=== PATIENT | male | born 1970 | race Caucasian/White ===

== ENCOUNTER 2020-03-09 14:50 | Emergency (ER) | payer OTHER, SELFPAY ==
[2020-03-09] VITALS (7 sets, daily range): BP systolic 97–147; BP diastolic 46–81; PULSE 97–122; RESP 25–44; TEMP 37–38.9; O2SAT 96–100; BMI 35.8
--- NOTE | 2020-03-09 14:53 | ECG_ITS ---
Test Reason : ED Blood Pressure : / mmHG Vent. Rate : 122 BPM Atrial Rate : 122 BPM P-R Int : 146 ms QRS Dur : 092 ms QT Int : 306 ms P-R-T Axes : 000 000 052 degrees QTc Int : 436 ms Sinus tachycardia Moderate voltage criteria for LVH, may be normal variant Borderline ECG When compared with ECG of 19-AUG-2019 18:45, No significant change was found Referred By: Denise Montalvo Electronically Signed By:CHANCE NOVOA MD
--- NOTE | 2020-03-09 14:55 | ED.WEAKNESS ---
HPI - Weakness General Chief complaint: Weakness <MONICA Bowen Last Filed: 03/09/20 21:02> Stated complaint: GENERAL WEAKNESS <MONICA Bowen Last Filed: 03/09/20 21:02> Time Seen by Provider: 03/09/20 14:53 <MONICA Bowen Last Filed: 03/09/20 21:02> Source: patient and EMS <MONICA Bowen Last Filed: 03/09/20 21:02> Mode of arrival: EMS <MONICA Bowen Last Filed: 03/09/20 21:02> Limitations: no limitations <MONICA Bowen Last Filed: 03/09/20 21:02> History of Present Illness HPI Narrative: 49 y/o male with history of DM, CKD, HTN, toe osteomyelitis s/p 6 weeks of IV abx in September 2019 and eventual distal amputation who presents to the ER via EMS with generalized weakness since he received the COVID-19 vaccine 9 days ago. He states immediately after the vaccination he was weak with chills and generally feeling unwell. About 3 days ago he noticed LLE swelling and it started to become painful and difficult to ambulate. He has spent much of the last 3 days in his recliner. He called 911 today because his leg pain and swelling was worsening and was continuing to feel very weak. No chest pain, shortness of breath, N/V/D or abdominal pain. No known fevers at home. <MONICA Bowen Last Filed: 03/09/20 21:02> MD Complaint: generalized weakness and difficulty walking <MONICA Bowen Last Filed: 03/09/20 21:02> Onset (ago): day(s) (9) <MONICA oBwen Last Filed: 03/09/20 21:02> Duration: constant <MONICA Bowen Last Filed: 03/09/20 21:02> Location: generalized <MONICA Bowen Last Filed: 03/09/20 21:02> Migration: none <MONICA Bowen Last Filed: 03/09/20 21:02> Severity: severe <MONICA Bowen Last Filed: 03/09/20 21:02> Severity scale (1-10): 7 <MONICA Bowen Last Filed: 03/09/20 21:02> Quality: aching <MONICA Bowen Last Filed: 03/09/20 21:02> Relieving factors: rest <MONICA Bowen Last Filed: 03/09/20 21:02> Exacerbating factors: movement and exertion <MONICA Bowen Last Filed: 03/09/20 21:02> Associated symptoms: fever/chills and loss of appetite <MONICA Bowen Last Filed: 03/09/20 21:02> Related Data Home medications: Home Medications Medication Instructions Recorded Confirmed amlodipine 1 tab PO DAILY 03/09/20 03/09/20 atorvastatin 1 tab PO BEDTIME 03/09/20 03/09/20 losartan 1 tab PO DAILY 03/09/20 03/09/20 metformin 2 tab PO BID 03/09/20 03/09/20 sitagliptin [Januvia] 1 tab PO DAILY 03/09/20 03/09/20 <MONICA Bowen Last Filed: 03/09/20 21:02> Allergies/Adverse reactions: Allergies Allergy/AdvReac Type Severity Reaction Status Date / Time No Known Allergies Allergy Verified 03/09/20 16:15 [No Known Allergies*] <MONICA Bowen Last Filed: 03/09/20 21:02> Review of Systems Review of Systems: Constitutional: No Fever, + Chills ENT/Mouth: No sore throat, No Rhinorrhea, No Swallowing Difficulty Eyes: No Eye Pain, No Swelling, No Redness Cardiovascular: No Chest Pain, No SOB, + Orthopnea, + Edema Respiratory: No Cough, No Sputum, No Wheezing, No dyspnea Gastrointestinal: No Nausea, No Vomiting, No Diarrhea, No abdominal Pain, No Hematochezia, No Melena Genitourinary: No Dysuria, No Urinary Frequency, No Hematuria Musculoskeletal: + joint pain, + Myalgias Skin: No Skin Lesions, No rash Neuro: + Weakness, + Numbness (bottom of left foot), No Dizziness, No Headache Psych: No Anxiety/Panic, No Depression Heme/Lymph: No Bruising, No Lymphadenopathy Endocrine: No Polyuria, No Polydipsia <MONICA Bowen - Last Filed: 03/09/20 21:02> [facility] Past Medical History Medical History: Medical History (Updated 03/09/20 @ 22:14 by Fran Finnegan MD) Amputation toe Diabetes Dyslipidemia HTN (hypertension) <MONICA Bowen - Last Filed: 03/09/20 21:02> Social History Social History: Social History Alcohol intake: former Smoking Status: Former smoker Use of substances other than those prescribed or required for medical reasons: No Advance Directives: No Advance Directives Information Provided: Yes <MONICA Bowen - Last Filed: 03/09/20 21:02> Physical Exam Vital Signs: Vital Signs: Last Vital Signs Temp 99.7 F 03/09/20 20:07 Pulse 99 03/10/20 00:09 Resp 38 H 03/09/20 21:54 BP 115/79 03/10/20 00:09 Pulse Ox 100 03/10/20 00:09 Body Mass Index 35.8 Appearance: Alert. Oriented X3. Respiratory distress with increased RR Eyes: Pupils equal, round and reactive to light. ENT: Pharynx normal. Neck: Normal inspection. Neck supple. CVS: rapid rate, regular rhythm, no murmur appreciated. Pulses normal. Respiratory: Mild/moderate respiratory distress with increased RR, shallow breathing pattern. No accessory muscle use. Breath sounds normal. Abdomen: Softly distended and nontender. +BS x4 Skin: Skin warm and dry, warm to the touch on LLE. Normal skin color. Normal skin turgor. No rashes. Extremities: 4+ LE pitting edema on the left below the knee to foot with fluid filled bullae on medial foot, plantar aspect of left foot with 2cm wound with small area of central necrosis. + left calf tenderness. left lower leg is warm and erythematous Neuro: Oriented X 3. Generalized weakness, non-focal. sensory defeicit to plantar aspect of left foot, chronic <MONICA Bowen - Last Filed: 03/09/20 21:02> Vital Signs: Last Vital Signs Temp 99.7 F 03/09/20 20:07 Pulse 99 03/10/20 00:09 Resp 38 H 03/09/20 21:54 BP 115/79 03/10/20 00:09 Pulse Ox 100 03/10/20 00:09 Body Mass Index 35.8 <Mary Wang MD - Last Filed: 03/10/20 01:38> Course Course Course Narrative: 49 y/o male wit history of DM2, HTN, HLD, hx left great toe osteo s/p distal amputation, obesity who presents with generalized weakness, LLE swelling and pain as well as hyperglycemia. Concern for sepsis due to cellulitis with developing osteomyelitis. Given significant swelling will need to r/o DVT as well. He is tachycardic and tacypneic on arrival, denying SOB or chest pain. Based on ideal body weight of 87 kg he would require 2.6L IVF resuscitation. Given his current RR 40 will need to be cautious with IVF while labs are pending. No known history of CHF. Vanco/ZOsyn ordered for cellulitis and concern for osteo. Will require admission. <MONICA Bowen - Last Filed: 03/09/20 21:02> Of note, patient had already been admitted, our hospitalist Dr. Kaur noticed that the patient's foot was getting more swollen. A CT scan was ordered, which showed several concerning findings including multilocular abscess is, septic arthritis, gas foci, ulcerations. Dr. Rey and I called together Dr. Miller, who recommended to transfer the patient to [facility]. Dr. Rey talked to the internal medicine service in [facility], patient will be directly admitted to the floor in [facility] since he is already admitted to our hospital. The internal medicine team at [facility] will consult surgery (inpatient to inpatient transfer). CT of the foot: LOWER LEG: Tricompartmental osteoarthritis in the left knee is most pronounced in the medial and patellofemoral compartments with non-uniform joint space narrowing, marginal osteophytes, central osteophytes, articular surface irregularity. More mild osteoarthritis in the lateral compartment. No knee joint effusion. The ankle as detailed below. No evidence of acute osteomyelitis in the tibia and fibula. Bone mineralization appears normal. There is moderate generalized fatty atrophy of the calf musculature. There is an elongated, poorly marginated collection extending cephalad from the ankle along the deep margin of the soleus, medial margin of the flexor hallucis longus, just at superficial margin of the tibial nerve, measuring approximately 25 cm in length and 3.8 x 2.5 cm in greatest cross-section. This collection is complex with an intermediate density of 15 Hounsfield units. A few punctate foci of gas are present along the deep margin of this collection distally near the ankle. Significant subcutaneous edema is present in the soft tissues of the calf. Proximally, this edema is most pronounced anteriorly. The edema is more circumferential at the level of the ankle. ANKLE/FOOT: In the medial soft tissues of the level of the ankle and hindfoot, there is a multilocular, complex collection measuring approximately 7 x 2.4 x 4.8 cm (AP by transverse by craniocaudal), containing numerous punctate foci of gas. There is a blister in the overlying skin as well as marked surrounding soft tissue swelling and subcutaneous edema. The deep margin of this collection abuts the medial aspect of the distal tibia and medial malleolus as well as the medial flexors. Small foci of gas are noted in the region of the tendon sheaths of the flexor digitorum longus and the flexor hallucis longus. Additionally, there is a small focus of heterotopic bone formation in the fascial plane between the flexor hallucis longus and flexor digitorum longus tendons at the level of the posterior malleolus. There is [id number] osteoarthritis of the talocrural joints with marginal osteophytes and subchondral cystic change. A thin layer of cortical bone at the posterior margin of the posterior malleolus likely corresponds to an old syndesmotic injury. There is more mild osteoarthritis in the subtalar joint of the posterior facet. Gas is noted within both the talocrural and subtalar joints, mostly within the posterior recess and within the posterior facet of the subtalar joint. Additional foci of gas noted within the sinus tarsi. There is extensive osseous destruction, disorganization, and debris at the midfoot. The talar head is markedly remodeled. The navicular is not identified, likely fragmented and displaced. The cuneiforms are eroded along the proximal articular surfaces with dorsal subluxation, articulating with the dorsal aspect of the talar head. The cuboid is markedly fragmented with significant bone loss at its proximal margin and a chronic intra-articular fracture line extending to its tarsometatarsal articulations. A prominent 2.8 cm osseous fragment just distal and plantar to the anterior process of the calcaneus likely represents a residual, displaced fragment of the cuboid. Numerous smaller ossific fragments are present around the midfoot. A punctate focus of gas is also noted within the soft tissues at the dorsal aspect of the talar head at its articulation with the remaining cuneiform bones. Fluid throughout the degenerated, disorganized midfoot articulations is contiguous with a multilocular collection at the plantar aspect of the midfoot which measures roughly 9 x 7 x 3 cm in area, extending through the plantar foot muscles and surrounding many of the plantar tendons. This collection extends to the superficial skin surface along the plantar aspect of the foot where there is a 1.2 x 1 cm ulceration. This collection has a thick wall and is most consistent with an abscess. The collections in the midfoot are likely contiguous with the joint of the hindfoot and, therefore, collections in the medial soft tissues at the ankle. Sensitivity for osteomyelitis is somewhat limited by CT, though there is relatively focal osteolysis at the plantar/lateral margin of the calcaneus which may correspond to a region of acute osteomyelitis. The metatarsals are intact, though significant degenerative changes at the tarsometatarsal articulations. The distal phalanx of the great toe is absent. CT/CT foot LT wo con IMPRESSION: 1. A small ulceration in the plantar aspect of the foot is contiguous with a multilocular abscess. This is contiguous with the neuropathic arthropathy and superimposed septic arthritis in the midfoot. 2. Probable osteomyelitis at the plantar/lateral margin of the anterior process of the calcaneus. 3. Septic arthritis in the talocrural and subtalar joints, contiguous with a multilocular abscess in the medial subcutaneous soft tissues at the ankle. 4. An elongated, complex collection propagates cephalad within the deep posterior compartment of the calf adjacent to the tibial nerve and flexor hallucis longus, measuring approximately 25 cm in length. <Mary Wang MD - Last Filed: 03/10/20 01:38> Reevaluation(s) Reevaluation #1: Patient has multiple critical labs - sodium low 118 with BUN/Cr 61/2.62, anion gap of 28, bicarb 16, troponin 126 and BNP 354. He continues to be tachypenic and tachycardic and denies SOB or chest pain. Troponin elevation likely due to demand. No ischemic changes on EKG and no chest pain, will trend. LE doppler is negative for DVT however calf veins are not well seen. Concern for possible PE - STAT NM V/Q scan ordered. His corrected sodium is 123 for glucose of 400. He is AAOx3 without confusion. Etiology likely dehydration given DEMETRIS and low chloride as well. Will give gentle hydration and recheck BNP. Nephrology paged. <MONICA Bowen - Last Filed: 03/09/20 21:02> Reevaluation #2: Spoke with Dr. To who is recommending 1L NS now and then second liter of NS @ 100cc /hr. Cannot give sepsis bolus at rapid rate given the risk of rapid correction of sodium and osmotic demyleation syndrome. Will plan to repeat BNP after 1L IVF completed. <MONICA Bowen - Last Filed: 03/09/20 21:02> Reevaluation #3: NM V/Q scan is normal. Troponin trended downward and lactic acid normalized. Sodium remained 118 with slight improvement in renal function. Corrected sodium remains 123 with persistent hyperglycemia. Will give SQ insulin, 2nd Liter NS and reassess BNP. Spoke with Dr. Murphy who will admit the patient. <MONICA Bowen - Last Filed: 03/09/20 21:02> MDM - Weakness Medical Records Attestation: I reviewed the patient's medical records. <MONICA Bowen - Last Filed: 03/09/20 21:02> Lab Data Attestation: I reviewed the patient's lab results. <MONICA Bowen - Last Filed: 03/09/20 21:02> Result diagrams: : 03/09/20 15:44 03/09/20 23:51 <MONICA Bowen - Last Filed: 03/09/20 21:02> Labs: Lab Results 03/09/20 03/09/20 03/09/20 Range/Units 15:10 15:44 15:44 WBC 11.3 H (4.8-10.8) X10*3/uL RBC 3.80 L (4.60-5.80) X10*6/uL Hgb 11.1 L (14.0-18.0) g/dl Hct 32.2 L (42-52) % MCV 84.7 (80-98) fL MCH 29.2 (27.0-33.0) pg MCHC 34.5 (31.0-36.0) g/dl RDW 13.2 (11.0-16.0) % Plt Count 233 (160-400) X10*3/uL MPV 11.7 (9.4-12.4) fL Immature Gran % (Auto) Cancelled Neut % (Auto) Cancelled Lymph % (Auto) Cancelled [place] % (Auto) Cancelled Eos % (Auto) Cancelled Baso % (Auto) Cancelled Lymph # (Auto) Cancelled [place] # (Auto) Cancelled Eos # (Auto) Cancelled Baso # (Auto) Cancelled Abs Immat Gran (auto) Cancelled Absolute Neuts (auto) Cancelled Absolute Nucleated RBC 0.000 (0.0-0.012) X10*3/uL Nucleated RBC % (auto) 0.0 (0.0-0.2) /100WBC Neutrophils % (Manual) 70 (45-73) % Band Neutrophils % 21 H (3-5) % Lymphocytes % (Manual) 3 L (20-40) % Monocytes % (Manual) 4 (2-11) % Metamyelocytes % 2 % Abs Neuts (Manual) 10.3 H (2.2-7.9) X10*3/uL Lymphocytes # (Manual) 0.3 L (0.6-4.8) X10*3/uL Monocytes # (Manual) 0.5 (0.0-1.2) X10*3/uL Metamyelocytes # 0.2 X10*3/uL Platelet Estimate NORMAL (NORMAL) Plt Morphology Comment NORMAL RBC Morphology NORMAL PT 13.9 H (10.8-13.0) SEC INR 1.2 H (0.9-1.1) APTT 28.0 (24.1-38.0) SEC VBG pH (7.32-7.43) VBG pCO2 mmHg VBG pO2 mmHg VBG HCO3 mmol/L VBG O2 Saturation % VBG Base Excess mmol/L Sodium (135-145) mmol/L Potassium (3.3-5.1) mmol/l Chloride (96-108) mmol/L Carbon Dioxide (22-29) mmol/L Anion Gap (12-20) BUN (9-16) mg/dL Creatinine (0.5-1.4) mg/dL Estim Creat Clear Calc Estimated GFR POC Glucose 351 H* (60-115) mg/dL Random Glucose (60-115) mg/dL Lactic Acid (0.5-2.0) mmol/L Lactic Acid Fup @ 2Hr (0.5-2.0) mmol/L Calcium (8.4-10.2) mg/dL Magnesium (1.6-2.6) mg/dL Total Bilirubin (0.0-1.0) mg/dL Direct Bilirubin (0.0-0.5) mg/dL AST (5-37) U/L ALT (0-40) U/L Alkaline Phosphatase (39-117) U/L Troponin I High Sens (<3.5-35.0) ng/L B-Natriuretic Peptide (<100) pg/mL Total Protein (6.5-8.0) g/dL Albumin (3.5-5.0) g/dL Urine Color Urine Appearance Urine pH (5.0-8.0) Ur Specific [place] (1.005-1.025) Urine Protein (NEG-TRACE) MG/DL Urine Glucose (UA) (NEG) MG/DL Urine Ketones (NEG) MG/DL Urine Blood (NEG) Urine Nitrite (NEG) Ur Leukocyte Esterase (NEG) Urine RBC (0) /HPF Urine WBC (0-4) /HPF Ur Squamous Epith Cells /LPF Amorphous Sediment /LPF Urine Bacteria /LPF Urine Osmolality (373-1093) mosm/kg Ur Random Sodium mmol/L Acetone, Qual (Negative) Coronavirus (PCR) (Negative) Influenza Type A (PCR) (Negative) Influenza Type B (PCR) (Negative) RSV RNA Qual (PCR) (Negative) 03/09/20 03/09/20 03/09/20 Range/Units 15:44 15:44 15:44 WBC (4.8-10.8) X10*3/uL RBC (4.60-5.80) X10*6/uL Hgb (14.0-18.0) g/dl Hct (42-52) % MCV (80-98) fL MCH (27.0-33.0) pg MCHC (31.0-36.0) g/dl RDW (11.0-16.0) % Plt Count (160-400) X10*3/uL MPV (9.4-12.4) fL Immature Gran % (Auto) Neut % (Auto) Lymph % (Auto) [place] % (Auto) Eos % (Auto) Baso % (Auto) Lymph # (Auto) [place] # (Auto) Eos # (Auto) Baso # (Auto) Abs Immat Gran (auto) Absolute Neuts (auto) Absolute Nucleated RBC (0.0-0.012) X10*3/uL Nucleated RBC % (auto) (0.0-0.2) /100WBC Neutrophils % (Manual) (45-73) % Band Neutrophils % (3-5) % Lymphocytes % (Manual) (20-40) % Monocytes % (Manual) (2-11) % Metamyelocytes % % Abs Neuts (Manual) (2.2-7.9) X10*3/uL Lymphocytes # (Manual) (0.6-4.8) X10*3/uL Monocytes # (Manual) (0.0-1.2) X10*3/uL Metamyelocytes # X10*3/uL Platelet Estimate (NORMAL) Plt Morphology Comment RBC Morphology PT (10.8-13.0) SEC INR (0.9-1.1) APTT (24.1-38.0) SEC VBG pH (7.32-7.43) VBG pCO2 mmHg VBG pO2 mmHg VBG HCO3 mmol/L VBG O2 Saturation % VBG Base Excess mmol/L Sodium 118 L* (135-145) mmol/L Potassium 4.4 (3.3-5.1) mmol/l Chloride 78 L (96-108) mmol/L Carbon Dioxide 16 L (22-29) mmol/L Anion Gap 28 H (12-20) BUN 61 H (9-16) mg/dL Creatinine 2.62 H (0.5-1.4) mg/dL Estim Creat Clear Calc 52.9 Estimated GFR 26 POC Glucose (60-115) mg/dL Random Glucose 406 H* (60-115) mg/dL Lactic Acid 2.1 H* (0.5-2.0) mmol/L Lactic Acid Fup @ 2Hr (0.5-2.0) mmol/L Calcium 7.1 L (8.4-10.2) mg/dL Magnesium 2.0 (1.6-2.6) mg/dL Total Bilirubin 0.7 (0.0-1.0) mg/dL Direct Bilirubin 0.7 H (0.0-0.5) mg/dL AST 32 (5-37) U/L ALT 17 (0-40) U/L Alkaline Phosphatase 65 (39-117) U/L Troponin I High Sens 126.8 H (<3.5-35.0) ng/L B-Natriuretic Peptide 354 H (<100) pg/mL Total Protein 4.9 L (6.5-8.0) g/dL Albumin 2.2 L (3.5-5.0) g/dL Urine Color Urine Appearance Urine pH (5.0-8.0) Ur Specific [place] (1.005-1.025) Urine Protein (NEG-TRACE) MG/DL Urine Glucose (UA) (NEG) MG/DL Urine Ketones (NEG) MG/DL Urine Blood (NEG) Urine Nitrite (NEG) Ur Leukocyte Esterase (NEG) Urine RBC (0) /HPF Urine WBC (0-4) /HPF Ur Squamous Epith Cells /LPF Amorphous Sediment /LPF Urine Bacteria /LPF Urine Osmolality (373-1093) mosm/kg Ur Random Sodium mmol/L Acetone, Qual (Negative) Coronavirus (PCR) (Negative) Influenza Type A (PCR) (Negative) Influenza Type B (PCR) (Negative) RSV RNA Qual (PCR) (Negative) 03/09/20 03/09/20 03/09/20 Range/Units 15:44 15:44 15:46 WBC (4.8-10.8) X10*3/uL RBC (4.60-5.80) X10*6/uL Hgb (14.0-18.0) g/dl Hct (42-52) % MCV (80-98) fL MCH (27.0-33.0) pg MCHC (31.0-36.0) g/dl RDW (11.0-16.0) % Plt Count (160-400) X10*3/uL MPV (9.4-12.4) fL Immature Gran % (Auto) Neut % (Auto) Lymph % (Auto) [place] % (Auto) Eos % (Auto) Baso % (Auto) Lymph # (Auto) [place] # (Auto) Eos # (Auto) Baso # (Auto) Abs Immat Gran (auto) Absolute Neuts (auto) Absolute Nucleated RBC (0.0-0.012) X10*3/uL Nucleated RBC % (auto) (0.0-0.2) /100WBC Neutrophils % (Manual) (45-73) % Band Neutrophils % (3-5) % Lymphocytes % (Manual) (20-40) % Monocytes % (Manual) (2-11) % Metamyelocytes % % Abs Neuts (Manual) (2.2-7.9) X10*3/uL Lymphocytes # (Manual) (0.6-4.8) X10*3/uL Monocytes # (Manual) (0.0-1.2) X10*3/uL Metamyelocytes # X10*3/uL Platelet Estimate (NORMAL) Plt Morphology Comment RBC Morphology PT (10.8-13.0) SEC INR (0.9-1.1) APTT (24.1-38.0) SEC VBG pH 7.32 (7.32-7.43) VBG pCO2 33 mmHg VBG pO2 43 mmHg VBG HCO3 17 mmol/L VBG O2 Saturation 69.0 % VBG Base Excess -7.5 mmol/L Sodium (135-145) mmol/L Potassium (3.3-5.1) mmol/l Chloride (96-108) mmol/L Carbon Dioxide (22-29) mmol/L Anion Gap (12-20) BUN (9-16) mg/dL Creatinine (0.5-1.4) mg/dL Estim Creat Clear Calc Estimated GFR POC Glucose (60-115) mg/dL Random Glucose (60-115) mg/dL Lactic Acid (0.5-2.0) mmol/L Lactic Acid Fup @ 2Hr (0.5-2.0) mmol/L Calcium (8.4-10.2) mg/dL Magnesium (1.6-2.6) mg/dL Total Bilirubin (0.0-1.0) mg/dL Direct Bilirubin (0.0-0.5) mg/dL AST (5-37) U/L ALT (0-40) U/L Alkaline Phosphatase (39-117) U/L Troponin I High Sens (<3.5-35.0) ng/L B-Natriuretic Peptide (<100) pg/mL Total Protein (6.5-8.0) g/dL Albumin (3.5-5.0) g/dL Urine Color Urine Appearance Urine pH (5.0-8.0) Ur Specific [place] (1.005-1.025) Urine Protein (NEG-TRACE) MG/DL Urine Glucose (UA) (NEG) MG/DL Urine Ketones (NEG) MG/DL Urine Blood (NEG) Urine Nitrite (NEG) Ur Leukocyte Esterase (NEG) Urine RBC (0) /HPF Urine WBC (0-4) /HPF Ur Squamous Epith Cells /LPF Amorphous Sediment /LPF Urine Bacteria /LPF Urine Osmolality (373-1093) mosm/kg Ur Random Sodium mmol/L Acetone, Qual Small H (Negative) Coronavirus (PCR) NEGATIVE (Negative) Influenza Type A (PCR) NEGATIVE (Negative) Influenza Type B (PCR) NEGATIVE (Negative) RSV RNA Qual (PCR) NEGATIVE (Negative) 03/09/20 03/09/20 03/09/20 Range/Units 19:26 19:26 19:26 WBC (4.8-10.8) X10*3/uL RBC (4.60-5.80) X10*6/uL Hgb (14.0-18.0) g/dl Hct (42-52) % MCV (80-98) fL MCH (27.0-33.0) pg MCHC (31.0-36.0) g/dl RDW (11.0-16.0) % Plt Count (160-400) X10*3/uL MPV (9.4-12.4) fL Immature Gran % (Auto) Neut % (Auto) Lymph % (Auto) [place] % (Auto) Eos % (Auto) Baso % (Auto) Lymph # (Auto) [place] # (Auto) Eos # (Auto) Baso # (Auto) Abs Immat Gran (auto) Absolute Neuts (auto) Absolute Nucleated RBC (0.0-0.012) X10*3/uL Nucleated RBC % (auto) (0.0-0.2) /100WBC Neutrophils % (Manual) (45-73) % Band Neutrophils % (3-5) % Lymphocytes % (Manual) (20-40) % Monocytes % (Manual) (2-11) % Metamyelocytes % % Abs Neuts (Manual) (2.2-7.9) X10*3/uL Lymphocytes # (Manual) (0.6-4.8) X10*3/uL Monocytes # (Manual) (0.0-1.2) X10*3/uL Metamyelocytes # X10*3/uL Platelet Estimate (NORMAL) Plt Morphology Comment RBC Morphology PT (10.8-13.0) SEC INR (0.9-1.1) APTT (24.1-38.0) SEC VBG pH (7.32-7.43) VBG pCO2 mmHg VBG pO2 mmHg VBG HCO3 mmol/L VBG O2 Saturation % VBG Base Excess mmol/L Sodium (135-145) mmol/L Potassium (3.3-5.1) mmol/l Chloride (96-108) mmol/L Carbon Dioxide (22-29) mmol/L Anion Gap (12-20) BUN (9-16) mg/dL Creatinine (0.5-1.4) mg/dL Estim Creat Clear Calc Estimated GFR POC Glucose (60-115) mg/dL Random Glucose (60-115) mg/dL Lactic Acid (0.5-2.0) mmol/L Lactic Acid Fup @ 2Hr (0.5-2.0) mmol/L Calcium (8.4-10.2) mg/dL Magnesium (1.6-2.6) mg/dL Total Bilirubin (0.0-1.0) mg/dL Direct Bilirubin (0.0-0.5) mg/dL AST (5-37) U/L ALT (0-40) U/L Alkaline Phosphatase (39-117) U/L Troponin I High Sens (<3.5-35.0) ng/L B-Natriuretic Peptide (<100) pg/mL Total Protein (6.5-8.0) g/dL Albumin (3.5-5.0) g/dL Urine Color YELLOW Urine Appearance CLEAR Urine pH 5.5 (5.0-8.0) Ur Specific [place] >= 1.030 H (1.005-1.025) Urine Protein 2+ H (NEG-TRACE) MG/DL Urine Glucose (UA) 500 H (NEG) MG/DL Urine Ketones 15 (NEG) MG/DL Urine Blood 3+ H (NEG) Urine Nitrite NEG (NEG) Ur Leukocyte Esterase NEG (NEG) Urine RBC 1-4 (0) /HPF Urine WBC 1-4 (0-4) /HPF Ur Squamous Epith Cells TRACE /LPF Amorphous Sediment 1+ /LPF Urine Bacteria TRACE /LPF Urine Osmolality 366 L (373-1093) mosm/kg Ur Random Sodium < 20.0 mmol/L Acetone, Qual (Negative) Coronavirus (PCR) (Negative) Influenza Type A (PCR) (Negative) Influenza Type B (PCR) (Negative) RSV RNA Qual (PCR) (Negative) 03/09/20 03/09/20 03/09/20 Range/Units 20:02 20:02 20:02 WBC (4.8-10.8) X10*3/uL RBC (4.60-5.80) X10*6/uL Hgb (14.0-18.0) g/dl Hct (42-52) % MCV (80-98) fL MCH (27.0-33.0) pg MCHC (31.0-36.0) g/dl RDW (11.0-16.0) % Plt Count (160-400) X10*3/uL MPV (9.4-12.4) fL Immature Gran % (Auto) Neut % (Auto) Lymph % (Auto) [place] % (Auto) Eos % (Auto) Baso % (Auto) Lymph # (Auto) [place] # (Auto) Eos # (Auto) Baso # (Auto) Abs Immat Gran (auto) Absolute Neuts (auto) Absolute Nucleated RBC (0.0-0.012) X10*3/uL Nucleated RBC % (auto) (0.0-0.2) /100WBC Neutrophils % (Manual) (45-73) % Band Neutrophils % (3-5) % Lymphocytes % (Manual) (20-40) % Monocytes % (Manual) (2-11) % Metamyelocytes % % Abs Neuts (Manual) (2.2-7.9) X10*3/uL Lymphocytes # (Manual) (0.6-4.8) X10*3/uL Monocytes # (Manual) (0.0-1.2) X10*3/uL Metamyelocytes # X10*3/uL Platelet Estimate (NORMAL) Plt Morphology Comment RBC Morphology PT (10.8-13.0) SEC INR (0.9-1.1) APTT (24.1-38.0) SEC VBG pH (7.32-7.43) VBG pCO2 mmHg VBG pO2 mmHg VBG HCO3 mmol/L VBG O2 Saturation % VBG Base Excess mmol/L Sodium 118 L* (135-145) mmol/L Potassium 3.9 (3.3-5.1) mmol/l Chloride 83 L (96-108) mmol/L Carbon Dioxide 15 L (22-29) mmol/L Anion Gap 24 H (12-20) BUN 63 H (9-16) mg/dL Creatinine 2.58 H (0.5-1.4) mg/dL Estim Creat Clear Calc 53.8 Estimated GFR 26 POC Glucose (60-115) mg/dL Random Glucose 413 H* (60-115) mg/dL Lactic Acid (0.5-2.0) mmol/L Lactic Acid Fup @ 2Hr 1.5 (0.5-2.0) mmol/L Calcium 6.6 L D (8.4-10.2) mg/dL Magnesium (1.6-2.6) mg/dL Total Bilirubin (0.0-1.0) mg/dL Direct Bilirubin (0.0-0.5) mg/dL AST (5-37) U/L ALT (0-40) U/L Alkaline Phosphatase (39-117) U/L Troponin I High Sens 124.3 H (<3.5-35.0) ng/L B-Natriuretic Peptide (<100) pg/mL Total Protein (6.5-8.0) g/dL Albumin (3.5-5.0) g/dL Urine Color Urine Appearance Urine pH (5.0-8.0) Ur Specific [place] (1.005-1.025) Urine Protein (NEG-TRACE) MG/DL Urine Glucose (UA) (NEG) MG/DL Urine Ketones (NEG) MG/DL Urine Blood (NEG) Urine Nitrite (NEG) Ur Leukocyte Esterase (NEG) Urine RBC (0) /HPF Urine WBC (0-4) /HPF Ur Squamous Epith Cells /LPF Amorphous Sediment /LPF Urine Bacteria /LPF Urine Osmolality (373-1093) mosm/kg Ur Random Sodium mmol/L Acetone, Qual (Negative) Coronavirus (PCR) (Negative) Influenza Type A (PCR) (Negative) Influenza Type B (PCR) (Negative) RSV RNA Qual (PCR) (Negative) <MONICA Bowen - Last Filed: 03/09/20 21:02> Lab Results 03/09/20 03/09/20 03/09/20 Range/Units 15:10 15:44 15:44 WBC 11.3 H (4.8-10.8) X10*3/uL RBC 3.80 L (4.60-5.80) X10*6/uL Hgb 11.1 L (14.0-18.0) g/dl Hct 32.2 L (42-52) % MCV 84.7 (80-98) fL MCH 29.2 (27.0-33.0) pg MCHC 34.5 (31.0-36.0) g/dl RDW 13.2 (11.0-16.0) % Plt Count 233 (160-400) X10*3/uL MPV 11.7 (9.4-12.4) fL Immature Gran % (Auto) Cancelled Neut % (Auto) Cancelled Lymph % (Auto) Cancelled [place] % (Auto) Cancelled Eos % (Auto) Cancelled Baso % (Auto) Cancelled Lymph # (Auto) Cancelled [place] # (Auto) Cancelled Eos # (Auto) Cancelled Baso # (Auto) Cancelled Abs Immat Gran (auto) Cancelled Absolute Neuts (auto) Cancelled Absolute Nucleated RBC 0.000 (0.0-0.012) X10*3/uL Nucleated RBC % (auto) 0.0 (0.0-0.2) /100WBC Neutrophils % (Manual) 70 (45-73) % Band Neutrophils % 21 H (3-5) % Lymphocytes % (Manual) 3 L (20-40) % Monocytes % (Manual) 4 (2-11) % Metamyelocytes % 2 % Abs Neuts (Manual) 10.3 H (2.2-7.9) X10*3/uL Lymphocytes # (Manual) 0.3 L (0.6-4.8) X10*3/uL Monocytes # (Manual) 0.5 (0.0-1.2) X10*3/uL Metamyelocytes # 0.2 X10*3/uL Platelet Estimate NORMAL (NORMAL) Plt Morphology Comment NORMAL RBC Morphology NORMAL PT 13.9 H (10.8-13.0) SEC INR 1.2 H (0.9-1.1) APTT 28.0 (24.1-38.0) SEC VBG pH (7.32-7.43) VBG pCO2 mmHg VBG pO2 mmHg VBG HCO3 mmol/L VBG O2 Saturation % VBG Base Excess mmol/L Sodium (135-145) mmol/L Potassium (3.3-5.1) mmol/l Chloride (96-108) mmol/L Carbon Dioxide (22-29) mmol/L Anion Gap (12-20) BUN (9-16) mg/dL Creatinine (0.5-1.4) mg/dL Estim Creat Clear Calc Estimated GFR POC Glucose 351 H* (60-115) mg/dL Random Glucose (60-115) mg/dL Lactic Acid (0.5-2.0) mmol/L Lactic Acid Fup @ 2Hr (0.5-2.0) mmol/L Calcium (8.4-10.2) mg/dL Magnesium (1.6-2.6) mg/dL Total Bilirubin (0.0-1.0) mg/dL Direct Bilirubin (0.0-0.5) mg/dL AST (5-37) U/L ALT (0-40) U/L Alkaline Phosphatase (39-117) U/L Troponin I High Sens (<3.5-35.0) ng/L B-Natriuretic Peptide (<100) pg/mL Total Protein (6.5-8.0) g/dL Albumin (3.5-5.0) g/dL Urine Color Urine Appearance Urine pH (5.0-8.0) Ur Specific [place] (1.005-1.025) Urine Protein (NEG-TRACE) MG/DL Urine Glucose (UA) (NEG) MG/DL Urine Ketones (NEG) MG/DL Urine Blood (NEG) Urine Nitrite (NEG) Ur Leukocyte Esterase (NEG) Urine RBC (0) /HPF Urine WBC (0-4) /HPF Ur Squamous Epith Cells /LPF Amorphous Sediment /LPF Urine Bacteria /LPF Urine Osmolality (373-1093) mosm/kg Ur Random Sodium mmol/L Acetone, Qual (Negative) Coronavirus (PCR) (Negative) Influenza Type A (PCR) (Negative) Influenza Type B (PCR) (Negative) RSV RNA Qual (PCR) (Negative) 03/09/20 03/09/20 03/09/20 Range/Units 15:44 15:44 15:44 WBC (4.8-10.8) X10*3/uL RBC (4.60-5.80) X10*6/uL Hgb (14.0-18.0) g/dl Hct (42-52) % MCV (80-98) fL MCH (27.0-33.0) pg MCHC (31.0-36.0) g/dl RDW (11.0-16.0) % Plt Count (160-400) X10*3/uL MPV (9.4-12.4) fL Immature Gran % (Auto) Neut % (Auto) Lymph % (Auto) [place] % (Auto) Eos % (Auto) Baso % (Auto) Lymph # (Auto) [place] # (Auto) Eos # (Auto) Baso # (Auto) Abs Immat Gran (auto) Absolute Neuts (auto) Absolute Nucleated RBC (0.0-0.012) X10*3/uL Nucleated RBC % (auto) (0.0-0.2) /100WBC Neutrophils % (Manual) (45-73) % Band Neutrophils % (3-5) % Lymphocytes % (Manual) (20-40) % Monocytes % (Manual) (2-11) % Metamyelocytes % % Abs Neuts (Manual) (2.2-7.9) X10*3/uL Lymphocytes # (Manual) (0.6-4.8) X10*3/uL Monocytes # (Manual) (0.0-1.2) X10*3/uL Metamyelocytes # X10*3/uL Platelet Estimate (NORMAL) Plt Morphology Comment RBC Morphology PT (10.8-13.0) SEC INR (0.9-1.1) APTT (24.1-38.0) SEC VBG pH (7.32-7.43) VBG pCO2 mmHg VBG pO2 mmHg VBG HCO3 mmol/L VBG O2 Saturation % VBG Base Excess mmol/L Sodium 118 L* (135-145) mmol/L Potassium 4.4 (3.3-5.1) mmol/l Chloride 78 L (96-108) mmol/L Carbon Dioxide 16 L (22-29) mmol/L Anion Gap 28 H (12-20) BUN 61 H (9-16) mg/dL Creatinine 2.62 H (0.5-1.4) mg/dL Estim Creat Clear Calc 52.9 Estimated GFR 26 POC Glucose (60-115) mg/dL Random Glucose 406 H* (60-115) mg/dL Lactic Acid 2.1 H* (0.5-2.0) mmol/L Lactic Acid Fup @ 2Hr (0.5-2.0) mmol/L Calcium 7.1 L (8.4-10.2) mg/dL Magnesium 2.0 (1.6-2.6) mg/dL Total Bilirubin 0.7 (0.0-1.0) mg/dL Direct Bilirubin 0.7 H (0.0-0.5) mg/dL AST 32 (5-37) U/L ALT 17 (0-40) U/L Alkaline Phosphatase 65 (39-117) U/L Troponin I High Sens 126.8 H (<3.5-35.0) ng/L B-Natriuretic Peptide 354 H (<100) pg/mL Total Protein 4.9 L (6.5-8.0) g/dL Albumin 2.2 L (3.5-5.0) g/dL Urine Color Urine Appearance Urine pH (5.0-8.0) Ur Specific [place] (1.005-1.025) Urine Protein (NEG-TRACE) MG/DL Urine Glucose (UA) (NEG) MG/DL Urine Ketones (NEG) MG/DL Urine Blood (NEG) Urine Nitrite (NEG) Ur Leukocyte Esterase (NEG) Urine RBC (0) /HPF Urine WBC (0-4) /HPF Ur Squamous Epith Cells /LPF Amorphous Sediment /LPF Urine Bacteria /LPF Urine Osmolality (373-1093) mosm/kg Ur Random Sodium mmol/L Acetone, Qual (Negative) Coronavirus (PCR) (Negative) Influenza Type A (PCR) (Negative) Influenza Type B (PCR) (Negative) RSV RNA Qual (PCR) (Negative) 03/09/20 03/09/20 03/09/20 Range/Units 15:44 15:44 15:46 WBC (4.8-10.8) X10*3/uL RBC (4.60-5.80) X10*6/uL Hgb (14.0-18.0) g/dl Hct (42-52) % MCV (80-98) fL MCH (27.0-33.0) pg MCHC (31.0-36.0) g/dl RDW (11.0-16.0) % Plt Count (160-400) X10*3/uL MPV (9.4-12.4) fL Immature Gran % (Auto) Neut % (Auto) Lymph % (Auto) [place] % (Auto) Eos % (Auto) Baso % (Auto) Lymph # (Auto) [place] # (Auto) Eos # (Auto) Baso # (Auto) Abs Immat Gran (auto) Absolute Neuts (auto) Absolute Nucleated RBC (0.0-0.012) X10*3/uL Nucleated RBC % (auto) (0.0-0.2) /100WBC Neutrophils % (Manual) (45-73) % Band Neutrophils % (3-5) % Lymphocytes % (Manual) (20-40) % Monocytes % (Manual) (2-11) % Metamyelocytes % % Abs Neuts (Manual) (2.2-7.9) X10*3/uL Lymphocytes # (Manual) (0.6-4.8) X10*3/uL Monocytes # (Manual) (0.0-1.2) X10*3/uL Metamyelocytes # X10*3/uL Platelet Estimate (NORMAL) Plt Morphology Comment RBC Morphology PT (10.8-13.0) SEC INR (0.9-1.1) APTT (24.1-38.0) SEC VBG pH 7.32 (7.32-7.43) VBG pCO2 33 mmHg VBG pO2 43 mmHg VBG HCO3 17 mmol/L VBG O2 Saturation 69.0 % VBG Base Excess -7.5 mmol/L Sodium (135-145) mmol/L Potassium (3.3-5.1) mmol/l Chloride (96-108) mmol/L Carbon Dioxide (22-29) mmol/L Anion Gap (12-20) BUN (9-16) mg/dL Creatinine (0.5-1.4) mg/dL Estim Creat Clear Calc Estimated GFR POC Glucose (60-115) mg/dL Random Glucose (60-115) mg/dL Lactic Acid (0.5-2.0) mmol/L Lactic Acid Fup @ 2Hr (0.5-2.0) mmol/L Calcium (8.4-10.2) mg/dL Magnesium (1.6-2.6) mg/dL Total Bilirubin (0.0-1.0) mg/dL Direct Bilirubin (0.0-0.5) mg/dL AST (5-37) U/L ALT (0-40) U/L Alkaline Phosphatase (39-117) U/L Troponin I High Sens (<3.5-35.0) ng/L B-Natriuretic Peptide (<100) pg/mL Total Protein (6.5-8.0) g/dL Albumin (3.5-5.0) g/dL Urine Color Urine Appearance Urine pH (5.0-8.0) Ur Specific [place] (1.005-1.025) Urine Protein (NEG-TRACE) MG/DL Urine Glucose (UA) (NEG) MG/DL Urine Ketones (NEG) MG/DL Urine Blood (NEG) Urine Nitrite (NEG) Ur Leukocyte Esterase (NEG) Urine RBC (0) /HPF Urine WBC (0-4) /HPF Ur Squamous Epith Cells /LPF Amorphous Sediment /LPF Urine Bacteria /LPF Urine Osmolality (373-1093) mosm/kg Ur Random Sodium mmol/L Acetone, Qual Small H (Negative) Coronavirus (PCR) NEGATIVE (Negative) Influenza Type A (PCR) NEGATIVE (Negative) Influenza Type B (PCR) NEGATIVE (Negative) RSV RNA Qual (PCR) NEGATIVE (Negative) 03/09/20 03/09/20 03/09/20 Range/Units 19:26 19:26 19:26 WBC (4.8-10.8) X10*3/uL RBC (4.60-5.80) X10*6/uL Hgb (14.0-18.0) g/dl Hct (42-52) % MCV (80-98) fL MCH (27.0-33.0) pg MCHC (31.0-36.0) g/dl RDW (11.0-16.0) % Plt Count (160-400) X10*3/uL MPV (9.4-12.4) fL Immature Gran % (Auto) Neut % (Auto) Lymph % (Auto) [place] % (Auto) Eos % (Auto) Baso % (Auto) Lymph # (Auto) [place] # (Auto) Eos # (Auto) Baso # (Auto) Abs Immat Gran (auto) Absolute Neuts (auto) Absolute Nucleated RBC (0.0-0.012) X10*3/uL Nucleated RBC % (auto) (0.0-0.2) /100WBC Neutrophils % (Manual) (45-73) % Band Neutrophils % (3-5) % Lymphocytes % (Manual) (20-40) % Monocytes % (Manual) (2-11) % Metamyelocytes % % Abs Neuts (Manual) (2.2-7.9) X10*3/uL Lymphocytes # (Manual) (0.6-4.8) X10*3/uL Monocytes # (Manual) (0.0-1.2) X10*3/uL Metamyelocytes # X10*3/uL Platelet Estimate (NORMAL) Plt Morphology Comment RBC Morphology PT (10.8-13.0) SEC INR (0.9-1.1) APTT (24.1-38.0) SEC VBG pH (7.32-7.43) VBG pCO2 mmHg VBG pO2 mmHg VBG HCO3 mmol/L VBG O2 Saturation % VBG Base Excess mmol/L Sodium (135-145) mmol/L Potassium (3.3-5.1) mmol/l Chloride (96-108) mmol/L Carbon Dioxide (22-29) mmol/L Anion Gap (12-20) BUN (9-16) mg/dL Creatinine (0.5-1.4) mg/dL Estim Creat Clear Calc Estimated GFR POC Glucose (60-115) mg/dL Random Glucose (60-115) mg/dL Lactic Acid (0.5-2.0) mmol/L Lactic Acid Fup @ 2Hr (0.5-2.0) mmol/L Calcium (8.4-10.2) mg/dL Magnesium (1.6-2.6) mg/dL Total Bilirubin (0.0-1.0) mg/dL Direct Bilirubin (0.0-0.5) mg/dL AST (5-37) U/L ALT (0-40) U/L Alkaline Phosphatase (39-117) U/L Troponin I High Sens (<3.5-35.0) ng/L B-Natriuretic Peptide (<100) pg/mL Total Protein (6.5-8.0) g/dL Albumin (3.5-5.0) g/dL Urine Color YELLOW Urine Appearance CLEAR Urine pH 5.5 (5.0-8.0) Ur Specific [place] >= 1.030 H (1.005-1.025) Urine Protein 2+ H (NEG-TRACE) MG/DL Urine Glucose (UA) 500 H (NEG) MG/DL Urine Ketones 15 (NEG) MG/DL Urine Blood 3+ H (NEG) Urine Nitrite NEG (NEG) Ur Leukocyte Esterase NEG (NEG) Urine RBC 1-4 (0) /HPF Urine WBC 1-4 (0-4) /HPF Ur Squamous Epith Cells TRACE /LPF Amorphous Sediment 1+ /LPF Urine Bacteria TRACE /LPF Urine Osmolality 366 L (373-1093) mosm/kg Ur Random Sodium < 20.0 mmol/L Acetone, Qual (Negative) Coronavirus (PCR) (Negative) Influenza Type A (PCR) (Negative) Influenza Type B (PCR) (Negative) RSV RNA Qual (PCR) (Negative) 03/09/20 03/09/20 03/09/20 Range/Units 20:02 20:02 20:02 WBC (4.8-10.8) X10*3/uL RBC (4.60-5.80) X10*6/uL Hgb (14.0-18.0) g/dl Hct (42-52) % MCV (80-98) fL MCH (27.0-33.0) pg MCHC (31.0-36.0) g/dl RDW (11.0-16.0) % Plt Count (160-400) X10*3/uL MPV (9.4-12.4) fL Immature Gran % (Auto) Neut % (Auto) Lymph % (Auto) [place] % (Auto) Eos % (Auto) Baso % (Auto) Lymph # (Auto) [place] # (Auto) Eos # (Auto) Baso # (Auto) Abs Immat Gran (auto) Absolute Neuts (auto) Absolute Nucleated RBC (0.0-0.012) X10*3/uL Nucleated RBC % (auto) (0.0-0.2) /100WBC Neutrophils % (Manual) (45-73) % Band Neutrophils % (3-5) % Lymphocytes % (Manual) (20-40) % Monocytes % (Manual) (2-11) % Metamyelocytes % % Abs Neuts (Manual) (2.2-7.9) X10*3/uL Lymphocytes # (Manual) (0.6-4.8) X10*3/uL Monocytes # (Manual) (0.0-1.2) X10*3/uL Metamyelocytes # X10*3/uL Platelet Estimate (NORMAL) Plt Morphology Comment RBC Morphology PT (10.8-13.0) SEC INR (0.9-1.1) APTT (24.1-38.0) SEC VBG pH (7.32-7.43) VBG pCO2 mmHg VBG pO2 mmHg VBG HCO3 mmol/L VBG O2 Saturation % VBG Base Excess mmol/L Sodium 118 L* (135-145) mmol/L Potassium 3.9 (3.3-5.1) mmol/l Chloride 83 L (96-108) mmol/L Carbon Dioxide 15 L (22-29) mmol/L Anion Gap 24 H (12-20) BUN 63 H (9-16) mg/dL Creatinine 2.58 H (0.5-1.4) mg/dL Estim Creat Clear Calc 53.8 Estimated GFR 26 POC Glucose (60-115) mg/dL Random Glucose 413 H* (60-115) mg/dL Lactic Acid (0.5-2.0) mmol/L Lactic Acid Fup @ 2Hr 1.5 (0.5-2.0) mmol/L Calcium 6.6 L D (8.4-10.2) mg/dL Magnesium (1.6-2.6) mg/dL Total Bilirubin (0.0-1.0) mg/dL Direct Bilirubin (0.0-0.5) mg/dL AST (5-37) U/L ALT (0-40) U/L Alkaline Phosphatase (39-117) U/L Troponin I High Sens 124.3 H (<3.5-35.0) ng/L B-Natriuretic Peptide (<100) pg/mL Total Protein (6.5-8.0) g/dL Albumin (3.5-5.0) g/dL Urine Color Urine Appearance Urine pH (5.0-8.0) Ur Specific [place] (1.005-1.025) Urine Protein (NEG-TRACE) MG/DL Urine Glucose (UA) (NEG) MG/DL Urine Ketones (NEG) MG/DL Urine Blood (NEG) Urine Nitrite (NEG) Ur Leukocyte Esterase (NEG) Urine RBC (0) /HPF Urine WBC (0-4) /HPF Ur Squamous Epith Cells /LPF Amorphous Sediment /LPF Urine Bacteria /LPF Urine Osmolality (373-1093) mosm/kg Ur Random Sodium mmol/L Acetone, Qual (Negative) Coronavirus (PCR) (Negative) Influenza Type A (PCR) (Negative) Influenza Type B (PCR) (Negative) RSV RNA Qual (PCR) (Negative) <Mary Wagn MD - Last Filed: 03/10/20 01:38> ECG Data Attestation: I personally reviewed and interpreted this ECG as follows: <MONICA Bowen - Last Filed: 03/09/20 21:02> ECG interpretation date: 03/09/20 <MONICA Bowen - Last Filed: 03/09/20 21:02> ECG interpretation time: 15:24 <MONICA Bowen - Last Filed: 03/09/20 21:02> Interpretation: sinus tachycardia, HR 122, normal VA interval, normal QTc, no ST segment elevations, increased voltage consistent with LVH <MONICA Bowen - Last Filed: 03/09/20 21:02> Critical Care Time Critical Care Time Critical Care Time: Yes <MONICA Bowen - Last Filed: 03/09/20 21:02> Total Critical Care Time: 65 <MONICA Bowen - Last Filed: 03/09/20 21:02> Attestation: I attest to critical care time spent caring for this critically ill patient - time spent doing multiple re-evaluations at the bedside of his cardiopulmonary status, speaking with consultants and reviewing prior records. <MONICA Bowen - Last Filed: 03/09/20 21:02> Discharge Plan Discharge Clinical Impression: Acute hyponatremia Sepsis Qualifiers: Sepsis type: sepsis due to unspecified organism Sepsis acute organ dysfunction status: with acute organ dysfunction Severe sepsis acute organ dysfunction type: acute renal failure Acute renal failure type: unspecified Severe sepsis shock status: without septic shock Qualified Code(s): A41.9 - Sepsis, unspecified organism Cellulitis Qualifiers: Site of cellulitis: extremity Site of cellulitis of extremity: lower extremity Laterality: left Qualified Code(s): L03.116 - Cellulitis of left lower limb <MONICA Bowen - Last Filed: 03/09/20 21:02> Patient Disposition: Admitted As Inpatient <MONICA Bowen - Last Filed: 03/09/20 21:02>
--- NOTE | 2020-03-09 15:01 | US_ITS ---
EXAMINATION: US VENOUS ULTRASOUND WITH DOPPLER LOWER EXTREMITY, LEFT CLINICAL INFORMATION: Swelling, tenderness and warmth of the left leg COMPARISON: None TECHNIQUE: Ultrasound of the deep veins is performed from the hip to the calf with compression sonography and color and pulse Doppler assessment. Spectral analysis with color-flow imaging is performed. FINDINGS: There is normal venous compression and respiratory variation and augmented flow. The visualized common femoral vein, superficial femoral vein, profunda femoral vein, and popliteal vein shows no evidence of deep venous thrombosis. The calf veins are not well visualized. No calf vein thrombus is seen. There is no significant popliteal fossa cyst. US/US venous duplex LE LT IMPRESSION: No DVT demonstrated in the left lower extremity. Evaluation of the calf veins is limited.
--- NOTE | 2020-03-09 15:01 | XR_ITS ---
EXAMINATION: CHEST X-RAY CLINICAL INFORMATION: Tachypnea COMPARISON: Previous chest x-ray July 2019 TECHNIQUE: AP portable chest FINDINGS: The cardiac and mediastinal contours are stable. Lung volumes are low. The lungs are clear. There is no pleural effusion or pneumothorax. Bony structures are unremarkable. XR/XR ankle LT min 3V IMPRESSION: Low lung volumes. No evidence for acute disease in the chest. EXAMINATION: Left foot and ankle x-ray CLINICAL INFORMATION: Swelling and soft tissue wound. Evaluate for osteomyelitis. COMPARISON: Previous left foot x-ray August [address] scan July 2019 TECHNIQUE: 3 views of the left foot and 3 views of the left ankle FINDINGS: Left foot: There is been interval amputation of the distal phalanx of the great toe. There is fragmentation of the bones of the midfoot and dislocation and subluxation suggestive of severe Charcot changes. This is similar to previous CT scan. No acute fracture or dislocation is seen. There is diffuse soft tissue swelling about the foot. No x-ray evidence of osteomyelitis is seen. Left ankle: Bone alignment is normal. No fracture or dislocation is seen. The ankle mortise is normal. There is diffuse soft tissue swelling. IMPRESSION: Left foot: Interval amputation of the distal phalanx of the great toe. Severe Charcot changes of the midfoot. No x-ray evidence of osteomyelitis seen. Left ankle: Soft tissue swelling.
[2020-03-09 15:17] LABS: Glucose, Whole Blood 351 mg/dL (60-115)
--- NOTE | 2020-03-09 15:18 | XR_ITS ---
EXAMINATION: CHEST X-RAY CLINICAL INFORMATION: Tachypnea COMPARISON: Previous chest x-ray July 2019 TECHNIQUE: AP portable chest FINDINGS: The cardiac and mediastinal contours are stable. Lung volumes are low. The lungs are clear. There is no pleural effusion or pneumothorax. Bony structures are unremarkable. XR/XR chest 1V IMPRESSION: Low lung volumes. No evidence for acute disease in the chest. EXAMINATION: Left foot and ankle x-ray CLINICAL INFORMATION: Swelling and soft tissue wound. Evaluate for osteomyelitis. COMPARISON: Previous left foot x-ray August [address] scan July 2019 TECHNIQUE: 3 views of the left foot and 3 views of the left ankle FINDINGS: Left foot: There is been interval amputation of the distal phalanx of the great toe. There is fragmentation of the bones of the midfoot and dislocation and subluxation suggestive of severe Charcot changes. This is similar to previous CT scan. No acute fracture or dislocation is seen. There is diffuse soft tissue swelling about the foot. No x-ray evidence of osteomyelitis is seen. Left ankle: Bone alignment is normal. No fracture or dislocation is seen. The ankle mortise is normal. There is diffuse soft tissue swelling. IMPRESSION: Left foot: Interval amputation of the distal phalanx of the great toe. Severe Charcot changes of the midfoot. No x-ray evidence of osteomyelitis seen. Left ankle: Soft tissue swelling.
[2020-03-09] MEDS: Piperacillin Sodium/Tazobactam 3.375 GM in 0.9 % Sodium Chloride 50 ML IV (15:30)
[2020-03-09 15:54] LABS: Base Excess VBG -7.5 mmol/L; HCO3 VBG 17 mmol/L; PCO2 VBG 33 mmHg; PO2 VBG 43 mmHg; pH VBG 7.32 (7.32-7.43)
[2020-03-09 16:09] LABS: Hematocrit 32.2 % (42-52); Hemoglobin 11.1 g/dl (14.0-18.0); Mean Corpuscular HGB Conc 34.5 g/dl (31.0-36.0); Mean Corpuscular Hemoglobin 29.2 pg (27.0-33.0); Mean Corpuscular Volume 84.7 fL (80-98); Mean Platelet Volume 11.7 fL (9.4-12.4); Platelet Count 233 X10*3/uL (160-400); Red Cell Distribution Width 13.2 % (11.0-16.0); White Blood Count 11.3 X10*3/uL (4.8-10.8)
[2020-03-09 16:25] LABS: INTERNATIONAL NORM RATIO 1.2 (0.9-1.1); Prothrombin Time 13.9 SEC (10.8-13.0)
[2020-03-09 16:31] LABS: Band Neutrophils Percent 21 % (3-5); Lymphocytes Absolute Manual 0.3 X10*3/uL (0.6-4.8); Lymphocytes Percent Manual 3 % (20-40); Metamyelocytes Absolute 0.2 X10*3/uL; Metamyelocytes Percent 2 %; Monocytes Absolute Manual 0.5 X10*3/uL (0.0-1.2); Monocytes Percent Manual 4 % (2-11); Neutrophils Absolute Manual 10.3 X10*3/uL (2.2-7.9); Neutrophils Percent Manual 70 % (45-73); Platelet Estimate NORMAL (NORMAL); Platelet Morphology Comment NORMAL; RBC Morphology NORMAL
[2020-03-09 16:32] LABS: Lactic Acid 2.1 mmol/L (0.5-2.0)
[2020-03-09 16:36] LABS: Alanine Aminotransferase 17 U/L (0-40); Albumin Level 2.2 g/dL (3.5-5.0); Alkaline Phosphatase 65 U/L (39-117); Anion Gap 28 (12-20); Aspartate Amino Transferase 32 U/L (5-37); Bilirubin Direct 0.7 mg/dL (0.0-0.5); Bilirubin Total 0.7 mg/dL (0.0-1.0); Blood Urea Nitrogen 61 mg/dL (9-16); Calcium 7.1 mg/dL (8.4-10.2); Carbon Dioxide 16 mmol/L (22-29); Chloride 78 mmol/L (96-108); Creatinine Clr Calc Pharmacy 52.9; Estimated Glomerular Filt Rate 26; Glucose Random 406 mg/dL (60-115); Potassium 4.4 mmol/l (3.3-5.1); Sodium 118 mmol/L (135-145); Total Protein 4.9 g/dL (6.5-8.0)
[2020-03-09 16:37] LABS: Influenza A PCR NEGATIVE (Negative); Influenza B PCR NEGATIVE (Negative); Resp Syncy Virus RNA Qual PCR NEGATIVE (Negative); SARS COV2 PCR INHOUSE NEGATIVE (Negative)
[2020-03-09 16:40] LABS: B Type Natriuretic Peptide 354 pg/mL (<100); Troponin-I High Sensitivity 126.8 ng/L (<3.5-35.0)
[2020-03-09 16:52] LABS: Acetone, serum QL Small (Negative)
--- NOTE | 2020-03-09 16:52 | NM_ITS ---
EXAMINATION: NM LUNG IMAGE PERFUSION CLINICAL INFORMATION: Tachypnea, tachycardia and concern for PE. COMPARISON: None TECHNIQUE: Following intravenous administration of 4 mCi of 99m technetium MAA, imaging of both lungs were obtained multiple projections. Ventilation study was not performed. FINDINGS: Perfusion images there is normal flow seen to all segments of the lungs. No segmental or subsegmental defects seen. NM/NM pul perfusion IMPRESSION: Normal perfusion scan. No segmental or subsegmental defects seen.
[2020-03-09] MEDS: 0.9 % Sodium Chloride 1,000 ML 999 ML IVCONT ×2 (17:10→21:24)
[2020-03-09 17:49] LABS: Reflex Lactate? Lactic Acid Added
[2020-03-09] MEDS: Acetaminophen 325 MG TABLET 975 MG PO (18:26)
[2020-03-09 19:48] LABS: Glucose Urine UA 500 MG/DL (NEG); Leukocyte Esterase Urine NEG (NEG); Nitrite Urine NEG (NEG); PH 5.5 (5.0-8.0); Specific Gravity - Urine >= 1.030 (1.005-1.025); Urine Blood 3+ (NEG); Urine Ketones 15 MG/DL (NEG); Urine Protein 2+ MG/DL (NEG-TRACE)
[2020-03-09 19:53] LABS: Appearance Urine CLEAR; Color Urine YELLOW
[2020-03-09 20:01] LABS: Amorphous Sediment Urine 1+ /LPF; Bacteria Urine TRACE /LPF; Squamous Epithelial Cell Urine TRACE /LPF
[2020-03-09] MEDS: 0.9 % Sodium Chloride 1,000 ML 100 ML IVCONT (20:11)
[2020-03-09 20:14] LABS: Sodium Urine Random < 20.0 mmol/L
[2020-03-09 20:28] LABS: Osmolality Urine 366 mosm/kg (373-1093)
[2020-03-09 20:28] LABS: ~Lactic Acid-LAB USE ONLY 1.5 mmol/L (0.5-2.0)
[2020-03-09 20:40] LABS: Troponin-I High Sensitivity 124.3 ng/L (<3.5-35.0)
[2020-03-09 20:49] LABS: Anion Gap 24 (12-20); Blood Urea Nitrogen 63 mg/dL (9-16); Calcium 6.6 mg/dL (8.4-10.2); Carbon Dioxide 15 mmol/L (22-29); Chloride 83 mmol/L (96-108); Creatinine Clr Calc Pharmacy 53.8; Estimated Glomerular Filt Rate 26; Glucose Random 413 mg/dL (60-115); Potassium 3.9 mmol/l (3.3-5.1); Sodium 118 mmol/L (135-145)
[2020-03-09] MEDS: Insulin Lispro 100 UNIT/ML 3 ML VIAL 8 UNIT SUBCUT (21:05)
--- NOTE | 2020-03-09 21:28 | CT_ITS ---
EXAMINATION: CT LOWER LEG WITHOUT CONTRAST, LEFT CT FOOT WITHOUT CONTRAST, LEFT CLINICAL INFORMATION: Rule out osteomyelitis. COMPARISON: Radiographs from the same date at 3:00 PM. TECHNIQUE: Multidetector volumetric imaging was obtained through the left lower leg from the level of the knee through the hindfoot and through the left foot from the ankle through the toes (separate studies). Multiplanar reformatted images in coronal and sagittal orientations were submitted. This CT examination was performed using dose optimization techniques as appropriate, variously including the following: *Automated exposure control. *Adjustment of mA and/or kV according to patient size (this includes techniques or standardized protocols for targeted exams where dose is matched to indication/reason for exam; i.e. extremities or head). *Use of iterative reconstruction technique. DLP: 186 and 295 mGy-cm FINDINGS: LOWER LEG: Tricompartmental osteoarthritis in the left knee is most pronounced in the medial and patellofemoral compartments with non-uniform joint space narrowing, marginal osteophytes, central osteophytes, articular surface irregularity. More mild osteoarthritis in the lateral compartment. No knee joint effusion. The ankle as detailed below. No evidence of acute osteomyelitis in the tibia and fibula. Bone mineralization appears normal. There is moderate generalized fatty atrophy of the calf musculature. There is an elongated, poorly marginated collection extending cephalad from the ankle along the deep margin of the soleus, medial margin of the flexor hallucis longus, just at superficial margin of the tibial nerve, measuring approximately 25 cm in length and 3.8 x 2.5 cm in greatest cross-section. This collection is complex with an intermediate density of 15 Hounsfield units. A few punctate foci of gas are present along the deep margin of this collection distally near the ankle. Significant subcutaneous edema is present in the soft tissues of the calf. Proximally, this edema is most pronounced anteriorly. The edema is more circumferential at the level of the ankle. ANKLE/FOOT: In the medial soft tissues of the level of the ankle and hindfoot, there is a multilocular, complex collection measuring approximately 7 x 2.4 x 4.8 cm (AP by transverse by craniocaudal), containing numerous punctate foci of gas. There is a blister in the overlying skin as well as marked surrounding soft tissue swelling and subcutaneous edema. The deep margin of this collection abuts the medial aspect of the distal tibia and medial malleolus as well as the medial flexors. Small foci of gas are noted in the region of the tendon sheaths of the flexor digitorum longus and the flexor hallucis longus. Additionally, there is a small focus of heterotopic bone formation in the fascial plane between the flexor hallucis longus and flexor digitorum longus tendons at the level of the posterior malleolus. There is [id number] osteoarthritis of the talocrural joints with marginal osteophytes and subchondral cystic change. A thin layer of cortical bone at the posterior margin of the posterior malleolus likely corresponds to an old syndesmotic injury. There is more mild osteoarthritis in the subtalar joint of the posterior facet. Gas is noted within both the talocrural and subtalar joints, mostly within the posterior recess and within the posterior facet of the subtalar joint. Additional foci of gas noted within the sinus tarsi. There is extensive osseous destruction, disorganization, and debris at the midfoot. The talar head is markedly remodeled. The navicular is not identified, likely fragmented and displaced. The cuneiforms are eroded along the proximal articular surfaces with dorsal subluxation, articulating with the dorsal aspect of the talar head. The cuboid is markedly fragmented with significant bone loss at its proximal margin and a chronic intra-articular fracture line extending to its tarsometatarsal articulations. A prominent 2.8 cm osseous fragment just distal and plantar to the anterior process of the calcaneus likely represents a residual, displaced fragment of the cuboid. Numerous smaller ossific fragments are present around the midfoot. A punctate focus of gas is also noted within the soft tissues at the dorsal aspect of the talar head at its articulation with the remaining cuneiform bones. Fluid throughout the degenerated, disorganized midfoot articulations is contiguous with a multilocular collection at the plantar aspect of the midfoot which measures roughly 9 x 7 x 3 cm in area, extending through the plantar foot muscles and surrounding many of the plantar tendons. This collection extends to the superficial skin surface along the plantar aspect of the foot where there is a 1.2 x 1 cm ulceration. This collection has a thick wall and is most consistent with an abscess. The collections in the midfoot are likely contiguous with the joint of the hindfoot and, therefore, collections in the medial soft tissues at the ankle. Sensitivity for osteomyelitis is somewhat limited by CT, though there is relatively focal osteolysis at the plantar/lateral margin of the calcaneus which may correspond to a region of acute osteomyelitis. The metatarsals are intact, though significant degenerative changes at the tarsometatarsal articulations. The distal phalanx of the great toe is absent. CT/CT lower leg LT wo con IMPRESSION: 1. A small ulceration in the plantar aspect of the foot is contiguous with a multilocular abscess. This is contiguous with the neuropathic arthropathy and superimposed septic arthritis in the midfoot. 2. Probable osteomyelitis at the plantar/lateral margin of the anterior process of the calcaneus. 3. Septic arthritis in the talocrural and subtalar joints, contiguous with a multilocular abscess in the medial subcutaneous soft tissues at the ankle. 4. An elongated, complex collection propagates cephalad within the deep posterior compartment of the calf adjacent to the tibial nerve and flexor hallucis longus, measuring approximately 25 cm in length.
--- NOTE | 2020-03-09 22:04 | P.HPHOSP_ITS ---
History of Present Illness Date of Service: 03/09/20 Chief Complaint: Foot pain, fever, chills 49 year old man presented with several days of feeling unwell. Stated symptoms began with episodes of chills in last week and he noted poor PO intake-states was unable to eat anything. In the last 2 days his symptoms worsened. He also has not taken is oral hypoglycemic meds in several days due to not eating. He noted profound fatigue and also began having severe foot pain in his left foot. At baseline he ambulates indpendently but states he was unable to bear weigh on the foot at all due to pain. Also describes significant swelling inthe left leg as well. No cough or dyspnea. No chest pain, abd pain, nausea, vomiting, diarrhea. Left leg has never been swollen like this before. No skin rashes that he has noticed. Did complain of some low back pain in the ED but attributes that to laying in the uncomfortable bed here as he had not had that prior. No dysuria. Prior history of ambutation of part of great toe on left foot due to osteomyelitis and also has Charcot foot on the left. Noted to have multiple lab abnormalities on presentation with uncontrolled blood sugars, hyponatremia, acute renal failure. Also is septic. Review of Systems Constitutional: Constitutional: Reports chills, Reports fatigue, Reports poor appetite and Reports weakness Eyes: Comments: No vision changes. ENT: Comments: No sore throat or difficulty swallowing Cardiovascular: Comments: No chest pain or palpitations Respiratory: Comments: No dyspnea or cough Gastrointestinal: Comments: No abd pain, nausea, vomiting, diarrhea Genitourinary: Comments: No dysuria Musculoskeletal: Comments: Back pain noted, foot pain noted Neurologic: Reports weakness Comments: generalized weakness Psychiatric: Comments: No anxiety or agitation Endocrine: Endocrine: Reports fatigue and Reports polydipsia Hematologic/Lymphatic: Comments: No adenopathy Allergic/Immunologic: Comments: No rashes [facility] Medical History (Updated 03/09/20 @ 22:14 by Fran Finnegan MD) Amputation toe Diabetes Dyslipidemia HTN (hypertension) Family history: reviewed and not pertinent Social History Alcohol intake: former Smoking Status: Former smoker Use of substances other than those prescribed or required for medical reasons: No Advance Directives: No Advance Directives Information Provided: Yes Meds Allergies Allergy/AdvReac Type Severity Reaction Status Date / Time No Known Allergies Allergy Verified 03/09/20 16:15 [No Known Allergies*] Home Medications Medication Instructions Recorded Confirmed Type amlodipine 1 tab PO DAILY 03/09/20 03/09/20 History atorvastatin 1 tab PO BEDTIME 03/09/20 03/09/20 History losartan 1 tab PO DAILY 03/09/20 03/09/20 History metformin 2 tab PO BID 03/09/20 03/09/20 History sitagliptin [Januvia] 1 tab PO DAILY 03/09/20 03/09/20 History Physical Exam Vital Signs and Narrative: Vital Signs: Last Vital Signs Temp 99.7 F 03/09/20 20:07 Pulse 97 03/09/20 21:54 Resp 38 H 03/09/20 21:54 BP 124/64 03/09/20 21:54 Pulse Ox 98 03/09/20 21:54 Body Mass Index 35.8 Const: General: tired appearing Orientation/consciousness: patient oriented x3 HENMT: Head: Yes normal to inspection General nose exam: Normal external nose present Mouth: Normal oral and palatal mucosa present Teeth and gingiva: dentition normal Eyes: Other: No scleral icterus or conjunctival injections General: ap pearance normal, both eyes and all related structures Neck: Other: Supple, no JVD Chest: Chest palpation & inspection: normal inspection of the chest Resp: Other: No insp crackles or exp wheezing heard Effort & Inspection: normal respiratory effort and able to speak in complete sentences Cardio: Rate: regular rate Rhythm: regular rhythm Heart sounds: S1 nor mal heart sound present and S2 normal heart sound present GI: Other: Abd soft, nontender, nondistended. Bowel sounds normal Inspection: Yes normal to inspection Back/Spine/Pelvis: Other: No point tenderness palpating entire spine Skin: Other: No rashes seen. Fluid filled blister medial aspect of left ankle and also on plantar aspect of the foot. No other draining lesions. Neuro: General: patient oriented x3 Extrem: Other: Left lower leg is warm to the touch and significantly edematous compared to the right leg. No discharge. No ulcers. Very slight blanching erythema seen in the leg. Results Labs CBC and Chem 7: 03/09/20 15:44 03/09/20 23:51 Labs: Laboratory Results - last 24 hr 03/09/20 03/09/20 03/09/20 15:10 15:44 15:44 MCV 84.7 MCH 29.2 MCHC 34.5 RDW 13.2 Plt Count 233 MPV 11.7 Immature Gran % (Auto) Cancelled Neut % (Auto) Cancelled Lymph % (Auto) Cancelled [place] % (Auto) Cancelled Eos % (Auto) Cancelled Baso % (Auto) Cancelled Lymph # (Auto) Cancelled [place] # (Auto) Cancelled Eos # (Auto) Cancelled Baso # (Auto) Cancelled Abs Immat Gran (auto) Cancelled Absolute Neuts (auto) Cancelled Absolute Nucleated RBC 0.000 Nucleated RBC % (auto) 0.0 Neutrophils % (Manual) 70 Band Neutrophils % 21 H Lymphocytes % (Manual) 3 L Monocytes % (Manual) 4 Metamyelocytes % 2 Abs Neuts (Manual) 10.3 H Lymphocytes # (Manual) 0.3 L Monocytes # (Manual) 0.5 Metamyelocytes # 0.2 Platelet Estimate NORMAL Plt Morphology Comment NORMAL RBC Morphology NORMAL PT 13.9 H INR 1.2 H APTT 28.0 VBG pH VBG pCO2 VBG pO2 VBG HCO3 VBG O2 Saturation VBG Base Excess Anion Gap Estim Creat Clear Calc Estimated GFR POC Glucose 351 H* Random Glucose Lactic Acid Lactic Acid Fup @ 2Hr Calcium Magnesium Total Bilirubin Direct Bilirubin AST ALT Alkaline Phosphatase Troponin I High Sens B-Natriuretic Peptide Total Protein Albumin Urine Color Urine Appearance Urine pH Ur Specific [place] Urine Protein Urine Glucose (UA) Urine Ketones Urine Blood Urine Nitrite Ur Leukocyte Esterase Urine RBC Urine WBC Ur Squamous Epith Cells Amorphous Sediment Urine Bacteria Urine Osmolality Ur Random Sodium Acetone, Qual Coronavirus (PCR) Influenza Type A (PCR) Influenza Type B (PCR) RSV RNA Qual (PCR) 03/09/20 03/09/20 03/09/20 15:44 15:44 15:44 MCV MCH MCHC RDW Plt Count MPV Immature Gran % (Auto) Neut % (Auto) Lymph % (Auto) [place] % (Auto) Eos % (Auto) Baso % (Auto) Lymph # (Auto) [place] # (Auto) Eos # (Auto) Baso # (Auto) Abs Immat Gran (auto) Absolute Neuts (auto) Absolute Nucleated RBC Nucleated RBC % (auto) Neutrophils % (Manual) Band Neutrophils % Lymphocytes % (Manual) Monocytes % (Manual) Metamyelocytes % Abs Neuts (Manual) Lymphocytes # (Manual) Monocytes # (Manual) Metamyelocytes # Platelet Estimate Plt Morphology Comment RBC Morphology PT INR APTT VBG pH VBG pCO2 VBG pO2 VBG HCO3 VBG O2 Saturation VBG Base Excess Anion Gap 28 H Estim Creat Clear Calc 52.9 Estimated GFR 26 POC Glucose Random Glucose 406 H* Lactic Acid 2.1 H* Lactic Acid Fup @ 2Hr Calcium 7.1 L Magnesium 2.0 Total Bilirubin 0.7 Direct Bilirubin 0.7 H AST 32 ALT 17 Alkaline Phosphatase 65 Troponin I High Sens 126.8 H B-Natriuretic Peptide 354 H Total Protein 4.9 L Albumin 2.2 L Urine Color Urine Appearance Urine pH Ur Specific [place] Urine Protein Urine Glucose (UA) Urine Ketones Urine Blood Urine Nitrite Ur Leukocyte Esterase Urine RBC Urine WBC Ur Squamous Epith Cells Amorphous Sediment Urine Bacteria Urine Osmolality Ur Random Sodium Acetone, Qual Coronavirus (PCR) Influenza Type A (PCR) Influenza Type B (PCR) RSV RNA Qual (PCR) 03/09/20 03/09/20 03/09/20 15:44 15:44 15:46 MCV MCH MCHC RDW Plt Count MPV Immature Gran % (Auto) Neut % (Auto) Lymph % (Auto) [place] % (Auto) Eos % (Auto) Baso % (Auto) Lymph # (Auto) [place] # (Auto) Eos # (Auto) Baso # (Auto) Abs Immat Gran (auto) Absolute Neuts (auto) Absolute Nucleated RBC Nucleated RBC % (auto) Neutrophils % (Manual) Band Neutrophils % Lymphocytes % (Manual) Monocytes % (Manual) Metamyelocytes % Abs Neuts (Manual) Lymphocytes # (Manual) Monocytes # (Manual) Metamyelocytes # Platelet Estimate Plt Morphology Comment RBC Morphology PT INR APTT VBG pH 7.32 VBG pCO2 33 VBG pO2 43 VBG HCO3 17 VBG O2 Saturation 69.0 VBG Base Excess -7.5 Anion Gap Estim Creat Clear Calc Estimated GFR POC Glucose Random Glucose Lactic Acid Lactic Acid Fup @ 2Hr Calcium Magnesium Total Bilirubin Direct Bilirubin AST ALT Alkaline Phosphatase Troponin I High Sens B-Natriuretic Peptide Total Protein Albumin Urine Color Urine Appearance Urine pH Ur Specific [place] Urine Protein Urine Glucose (UA) Urine Ketones Urine Blood Urine Nitrite Ur Leukocyte Esterase Urine RBC Urine WBC Ur Squamous Epith Cells Amorphous Sediment Urine Bacteria Urine Osmolality Ur Random Sodium Acetone, Qual Small H Coronavirus (PCR) NEGATIVE Influenza Type A (PCR) NEGATIVE Influenza Type B (PCR) NEGATIVE RSV RNA Qual (PCR) NEGATIVE 03/09/20 03/09/20 03/09/20 19:26 19:26 19:26 MCV MCH MCHC RDW Plt Count MPV Immature Gran % (Auto) Neut % (Auto) Lymph % (Auto) [place] % (Auto) Eos % (Auto) Baso % (Auto) Lymph # (Auto) [place] # (Auto) Eos # (Auto) Baso # (Auto) Abs Immat Gran (auto) Absolute Neuts (auto) Absolute Nucleated RBC Nucleated RBC % (auto) Neutrophils % (Manual) Band Neutrophils % Lymphocytes % (Manual) Monocytes % (Manual) Metamyelocytes % Abs Neuts (Manual) Lymphocytes # (Manual) Monocytes # (Manual) Metamyelocytes # Platelet Estimate Plt Morphology Comment RBC Morphology PT INR APTT VBG pH VBG pCO2 VBG pO2 VBG HCO3 VBG O2 Saturation VBG Base Excess Anion Gap Estim Creat Clear Calc Estimated GFR POC Glucose Random Glucose Lactic Acid Lactic Acid Fup @ 2Hr Calcium Magnesium Total Bilirubin Direct Bilirubin AST ALT Alkaline Phosphatase Troponin I High Sens B-Natriuretic Peptide Total Protein Albumin Urine Color YELLOW Urine Appearance CLEAR Urine pH 5.5 Ur Specific [place] >= 1.030 H Urine Protein 2+ H Urine Glucose (UA) 500 H Urine Ketones 15 Urine Blood 3+ H Urine Nitrite NEG Ur Leukocyte Esterase NEG Urine RBC 1-4 Urine WBC 1-4 Ur Squamous Epith Cells TRACE Amorphous Sediment 1+ Urine Bacteria TRACE Urine Osmolality 366 L Ur Random Sodium < 20.0 Acetone, Qual Coronavirus (PCR) Influenza Type A (PCR) Influenza Type B (PCR) RSV RNA Qual (PCR) 03/09/20 03/09/20 03/09/20 20:02 20:02 20:02 MCV MCH MCHC RDW Plt Count MPV Immature Gran % (Auto) Neut % (Auto) Lymph % (Auto) [place] % (Auto) Eos % (Auto) Baso % (Auto) Lymph # (Auto) [place] # (Auto) Eos # (Auto) Baso # (Auto) Abs Immat Gran (auto) Absolute Neuts (auto) Absolute Nucleated RBC Nucleated RBC % (auto) Neutrophils % (Manual) Band Neutrophils % Lymphocytes % (Manual) Monocytes % (Manual) Metamyelocytes % Abs Neuts (Manual) Lymphocytes # (Manual) Monocytes # (Manual) Metamyelocytes # Platelet Estimate Plt Morphology Comment RBC Morphology PT INR APTT VBG pH VBG pCO2 VBG pO2 VBG HCO3 VBG O2 Saturation VBG Base Excess Anion Gap 24 H Estim Creat Clear Calc 53.8 Estimated GFR 26 POC Glucose Random Glucose 413 H* Lactic Acid Lactic Acid Fup @ 2Hr 1.5 Calcium 6.6 L D Magnesium Total Bilirubin Direct Bilirubin AST ALT Alkaline Phosphatase Troponin I High Sens 124.3 H B-Natriuretic Peptide Total Protein Albumin Urine Color Urine Appearance Urine pH Ur Specific [place] Urine Protein Urine Glucose (UA) Urine Ketones Urine Blood Urine Nitrite Ur Leukocyte Esterase Urine RBC Urine WBC Ur Squamous Epith Cells Amorphous Sediment Urine Bacteria Urine Osmolality Ur Random Sodium Acetone, Qual Coronavirus (PCR) Influenza Type A (PCR) Influenza Type B (PCR) RSV RNA Qual (PCR) Imaging Radiologist's Impressions: Impressions Ankle X-Ray 03/09/20 15:01 IMPRESSION: Low lung volumes. No evidence for acute disease in the chest. EXAMINATION: Left foot and ankle x-ray CLINICAL INFORMATION: Swelling and soft tissue wound. Evaluate for osteomyelitis. COMPARISON: Previous left foot x-ray August [address] scan July 2019 TECHNIQUE: 3 views of the left foot and 3 views of the left ankle FINDINGS: Left foot: There is been interval amputation of the distal phalanx of the great toe. There is fragmentation of the bones of the midfoot and dislocation and subluxation suggestive of severe Charcot changes. This is similar to previous CT scan. No acute fracture or dislocation is seen. There is diffuse soft tissue swelling about the foot. No x-ray evidence of osteomyelitis is seen. Left ankle: Bone alignment is normal. No fracture or dislocation is seen. The ankle mortise is normal. There is diffuse soft tissue swelling. IMPRESSION: Left foot: Interval amputation of the distal phalanx of the great toe. Severe Charcot changes of the midfoot. No x-ray evidence of osteomyelitis seen. Left ankle: Soft tissue swelling. Foot X-Ray 03/09/20 15:01 IMPRESSION: Low lung volumes. No evidence for acute disease in the chest. EXAMINATION: Left foot and ankle x-ray CLINICAL INFORMATION: Swelling and soft tissue wound. Evaluate for osteomyelitis. COMPARISON: Previous left foot x-ray August [address] scan July 2019 TECHNIQUE: 3 views of the left foot and 3 views of the left ankle FINDINGS: Left foot: There is been interval amputation of the distal phalanx of the great toe. There is fragmentation of the bones of the midfoot and dislocation and subluxation suggestive of severe Charcot changes. This is similar to previous CT scan. No acute fracture or dislocation is seen. There is diffuse soft tissue swelling about the foot. No x-ray evidence of osteomyelitis is seen. Left ankle: Bone alignment is normal. No fracture or dislocation is seen. The ankle mortise is normal. There is diffuse soft tissue swelling. IMPRESSION: Left foot: Interval amputation of the distal phalanx of the great toe. Severe Charcot changes of the midfoot. No x-ray evidence of osteomyelitis seen. Left ankle: Soft tissue swelling. Venous Duplex 03/09/20 15:01 IMPRESSION: No DVT demonstrated in the left lower extremity. Evaluation of the calf veins is limited. Chest X-Ray 03/09/20 15:18 IMPRESSION: Low lung volumes. No evidence for acute disease in the chest. EXAMINATION: Left foot and ankle x-ray CLINICAL INFORMATION: Swelling and soft tissue wound. Evaluate for osteomyelitis. COMPARISON: Previous left foot x-ray August [address] scan July 2019 TECHNIQUE: 3 views of the left foot and 3 views of the left ankle FINDINGS: Left foot: There is been interval amputation of the distal phalanx of the great toe. There is fragmentation of the bones of the midfoot and dislocation and subluxation suggestive of severe Charcot changes. This is similar to previous CT scan. No acute fracture or dislocation is seen. There is diffuse soft tissue swelling about the foot. No x-ray evidence of osteomyelitis is seen. Left ankle: Bone alignment is normal. No fracture or dislocation is seen. The ankle mortise is normal. There is diffuse soft tissue swelling. IMPRESSION: Left foot: Interval amputation of the distal phalanx of the great toe. Severe Charcot changes of the midfoot. No x-ray evidence of osteomyelitis seen. Left ankle: Soft tissue swelling. Pulmonary Perfusion Imaging 03/09/20 16:52 IMPRESSION: Normal perfusion scan. No segmental or subsegmental defects seen. Assessment and Plan (1) Sepsis: Qualifiers: Acute renal failure type: unspecified Sepsis acute organ dysfunction status: with acute organ dysfunction Sepsis type: sepsis due to unspecified organism Severe sepsis acute organ dysfunction type: acute renal failure Severe sepsis shock status: without septic shock Qualified Code(s): A41.9 - Sepsis, unspecified organism; R65.20 - Severe sepsis without septic shock; N17.9 - Acute kidney failure, unspecified Status: Acute (2) Cellulitis: Qualifiers: Laterality: left Site of cellulitis: extremity Site of cellulitis of extremity: lower extremity Qualified Code(s): L03.116 - Cellulitis of left lower limb Status: Acute (3) Acute hyponatremia: Status: Acute 49 year old man presenting with severe sepsis likely due to skin/soft tissue infection in left lower extremity. Noted acute renal failure, uncontrolled blood sugar and hyponatremia on presentation. Severe sepsis. Bandemia, fever, tachycardia, tachypnea noted on presentation as well as acute renal failure and hypotension. Blood cultures ordered and started on empiric Vancomycin/Zosyn in the ED-will continue for now. Ordered procalcitonin. CT scan of the left lower extremity ordered to see if there is infection along the tissue planes. Received 2L IV fluid bolus (NS). Hyponatremia Some pseudohyponatremia due to elevated blood sugar-corrects to 123-126. Likely element of hypovolemic hyponatremia. Will trend his sodium frequently so as not to over-correct him. Aim for increase in 6-8mmol/l in first 24 hrs. Hyperglycemia, DM type 2 Some anion gap noted. Hydrated with IV fluid and given SC insulin-continue blood sugar checks q4hrs and use sliding scale insulin to correct. Holding Met formin and Januvia acutely. Troponin elevation Noted but no upward trend-likely troponin leak due to physicologic stress from acute illness. EKG showed sinus tachycardia without any acute changes. HTN Holding meds acutely given he was hypotensive in ED. DVT proph SC Heparin. Codes status Full code, healthcare proxy is his mother.
[2020-03-09 23:12] LABS: Glucose, Whole Blood 369 mg/dL (60-115)
[2020-03-10 00:09] VITALS: BP 115/79; PULSE 99; O2SAT 100
[2020-03-10] MEDS: Insulin Lispro 100 UNIT/ML 3 ML VIAL SUBCUT (00:14)
[2020-03-10] MEDS: Heparin Sodium,Porcine 5,000 UNIT/ML VIAL 5000 UNIT SUBCUT (00:15)
[2020-03-10 00:26] LABS: Anion Gap 19 (12-20); Blood Urea Nitrogen 63 mg/dL (9-16); Calcium 6.5 mg/dL (8.4-10.2); Carbon Dioxide 19 mmol/L (22-29); Chloride 85 mmol/L (96-108); Creatinine Clr Calc Pharmacy 52.7; Estimated Glomerular Filt Rate 26; Glucose Random 374 mg/dL (60-115); Potassium 3.7 mmol/l (3.3-5.1); Sodium 119 mmol/L (135-145)
[2020-03-10 00:41] LABS: Procalcitonin 20.85 ng/mL
--- NOTE | 2020-03-10 01:22 | PM.DS ---
DS: Providers Provider Date of Service: 03/10/20 Date of admission: 03/09/20 21:54 Primary care physician: Min Gomez DS: Transfer Hospital Acceptance Reason for Transfer: Evaluation and management of lower leg infection Name of Facility: [facility] DS: Diagnosis Discharge Diagnosis (1) Sepsis: Status: Acute (2) Cellulitis: Status: Acute (3) Acute hyponatremia: Status: Acute DS: Medications Discharge Medications Home Medications: Home Medications Medication Instructions Recorded Confirmed amlodipine 1 tab PO DAILY 03/09/20 03/09/20 atorvastatin 1 tab PO BEDTIME 03/09/20 03/09/20 losartan 1 tab PO DAILY 03/09/20 03/09/20 metformin 2 tab PO BID 03/09/20 03/09/20 sitagliptin [Januvia] 1 tab PO DAILY 03/09/20 03/09/20 DS: Summary Time Spent with Patient Time attestation: Total time spent providing and/or coordinating discharge services: 35 minutes. 49 year old man presented with sepsis and leg/foot swelling and pain. Please see H&P for further detail on presentation and initial management. Initially had acute renal failure, hyperglycemia, hyponatremia and troponin elevation likely due to sepsis as he did not have symptoms of ACS. Sodium on presntation was 118, corrected to 123 when accouting for blood sugar. After normal slaine boluses increased to 119. Patient underwent CT scan of the lower leg to evaluate for infection along tissue planes and significant complex fluid collections with gas noted. Case was discussed with Dr Smith from surgery who had performed his partial great toe amputation on the left foot in the past. It was felt that this would be a complex case athat needed higher level of care so arrangements were made to transfer to [facility] for further care. Upon discharge the patient was hemodynamically stable and current antibiotic regimen includes: Zosyn 3.375g IV initially at 1500, subsequent dose of 2.25g Vancomycin 2g IV load initially at 1500 Normal saline 2L bolus followed by 150mL/hr Discharge coordination time: Greater than 30 minutes Physical Exam Vital Signs: Vital Signs: Last Vital Signs Temp 99.7 F 03/09/20 20:07 Pulse 99 03/10/20 00:09 Resp 38 H 03/09/20 21:54 BP 115/79 03/10/20 00:09 Pulse Ox 100 03/10/20 00:09 Body Mass Index 35.8 Const: Other: See exam in H&P done earlier DS: Data Data Completed and Pending Labs on day of discharge: Laboratory Tests 03/09/20 03/09/20 03/09/20 15:10 15:44 15:44 WBC 11.3 H RBC 3.80 L Hgb 11.1 L Hct 32.2 L MCV 84.7 MCH 29.2 MCHC 34.5 RDW 13.2 Plt Count 233 MPV 11.7 Immature Gran % (Auto) Cancelled Neut % (Auto) Cancelled Lymph % (Auto) Cancelled [place] % (Auto) Cancelled Eos % (Auto) Cancelled Baso % (Auto) Cancelled Lymph # (Auto) Cancelled [place] # (Auto) Cancelled Eos # (Auto) Cancelled Baso # (Auto) Cancelled Abs Immat Gran (auto) Cancelled Absolute Neuts (auto) Cancelled Absolute Nucleated RBC 0.000 Nucleated RBC % (auto) 0.0 Neutrophils % (Manual) 70 Band Neutrophils % 21 H Lymphocytes % (Manual) 3 L Monocytes % (Manual) 4 Metamyelocytes % 2 Abs Neuts (Manual) 10.3 H Lymphocytes # (Manual) 0.3 L Monocytes # (Manual) 0.5 Metamyelocytes # 0.2 Platelet Estimate NORMAL Plt Morphology Comment NORMAL RBC Morphology NORMAL PT 13.9 H INR 1.2 H APTT 28.0 VBG pH VBG pCO2 VBG pO2 VBG HCO3 VBG O2 Saturation VBG Base Excess Sodium Potassium Chloride Carbon Dioxide Anion Gap BUN Creatinine Estim Creat Clear Calc Estimated GFR POC Glucose 351 H* Random Glucose Lactic Acid Lactic Acid Fup @ 2Hr Calcium Magnesium Total Bilirubin Direct Bilirubin AST ALT Alkaline Phosphatase Troponin I High Sens B-Natriuretic Peptide Total Protein Albumin Procalcitonin Urine Color Urine Appearance Urine pH Ur Specific [place] Urine Protein Urine Glucose (UA) Urine Ketones Urine Blood Urine Nitrite Ur Leukocyte Esterase Urine RBC Urine WBC Ur Squamous Epith Cells Amorphous Sediment Urine Bacteria Urine Osmolality Ur Random Sodium Acetone, Qual Coronavirus (PCR) Influenza Type A (PCR) Influenza Type B (PCR) RSV RNA Qual (PCR) 03/09/20 03/09/20 03/09/20 15:44 15:44 15:44 WBC RBC Hgb Hct MCV MCH MCHC RDW Plt Count MPV Immature Gran % (Auto) Neut % (Auto) Lymph % (Auto) [place] % (Auto) Eos % (Auto) Baso % (Auto) Lymph # (Auto) [place] # (Auto) Eos # (Auto) Baso # (Auto) Abs Immat Gran (auto) Absolute Neuts (auto) Absolute Nucleated RBC Nucleated RBC % (auto) Neutrophils % (Manual) Band Neutrophils % Lymphocytes % (Manual) Monocytes % (Manual) Metamyelocytes % Abs Neuts (Manual) Lymphocytes # (Manual) Monocytes # (Manual) Metamyelocytes # Platelet Estimate Plt Morphology Comment RBC Morphology PT INR APTT VBG pH VBG pCO2 VBG pO2 VBG HCO3 VBG O2 Saturation VBG Base Excess Sodium 118 L* Potassium 4.4 Chloride 78 L Carbon Dioxide 16 L Anion Gap 28 H BUN 61 H Creatinine 2.62 H Estim Creat Clear Calc 52.9 Estimated GFR 26 POC Glucose Random Glucose 406 H* Lactic Acid 2.1 H* Lactic Acid Fup @ 2Hr Calcium 7.1 L Magnesium 2.0 Total Bilirubin 0.7 Direct Bilirubin 0.7 H AST 32 ALT 17 Alkaline Phosphatase 65 Troponin I High Sens 126.8 H B-Natriuretic Peptide 354 H Total Protein 4.9 L Albumin 2.2 L Procalcitonin Urine Color Urine Appearance Urine pH Ur Specific [place] Urine Protein Urine Glucose (UA) Urine Ketones Urine Blood Urine Nitrite Ur Leukocyte Esterase Urine RBC Urine WBC Ur Squamous Epith Cells Amorphous Sediment Urine Bacteria Urine Osmolality Ur Random Sodium Acetone, Qual Coronavirus (PCR) Influenza Type A (PCR) Influenza Type B (PCR) RSV RNA Qual (PCR) 03/09/20 03/09/20 03/09/20 15:44 15:44 15:46 WBC RBC Hgb Hct MCV MCH MCHC RDW Plt Count MPV Immature Gran % (Auto) Neut % (Auto) Lymph % (Auto) [place] % (Auto) Eos % (Auto) Baso % (Auto) Lymph # (Auto) [place] # (Auto) Eos # (Auto) Baso # (Auto) Abs Immat Gran (auto) Absolute Neuts (auto) Absolute Nucleated RBC Nucleated RBC % (auto) Neutrophils % (Manual) Band Neutrophils % Lymphocytes % (Manual) Monocytes % (Manual) Metamyelocytes % Abs Neuts (Manual) Lymphocytes # (Manual) Monocytes # (Manual) Metamyelocytes # Platelet Estimate Plt Morphology Comment RBC Morphology PT INR APTT VBG pH 7.32 VBG pCO2 33 VBG pO2 43 VBG HCO3 17 VBG O2 Saturation 69.0 VBG Base Excess -7.5 Sodium Potassium Chloride Carbon Dioxide Anion Gap BUN Creatinine Estim Creat Clear Calc Estimated GFR POC Glucose Random Glucose Lactic Acid Lactic Acid Fup @ 2Hr Calcium Magnesium Total Bilirubin Direct Bilirubin AST ALT Alkaline Phosphatase Troponin I High Sens B-Natriuretic Peptide Total Protein Albumin Procalcitonin Urine Color Urine Appearance Urine pH Ur Specific [place] Urine Protein Urine Glucose (UA) Urine Ketones Urine Blood Urine Nitrite Ur Leukocyte Esterase Urine RBC Urine WBC Ur Squamous Epith Cells Amorphous Sediment Urine Bacteria Urine Osmolality Ur Random Sodium Acetone, Qual Small H Coronavirus (PCR) NEGATIVE Influenza Type A (PCR) NEGATIVE Influenza Type B (PCR) NEGATIVE RSV RNA Qual (PCR) NEGATIVE 03/09/20 03/09/20 03/09/20 19:26 19:26 19:26 WBC RBC Hgb Hct MCV MCH MCHC RDW Plt Count MPV Immature Gran % (Auto) Neut % (Auto) Lymph % (Auto) [place] % (Auto) Eos % (Auto) Baso % (Auto) Lymph # (Auto) [place] # (Auto) Eos # (Auto) Baso # (Auto) Abs Immat Gran (auto) Absolute Neuts (auto) Absolute Nucleated RBC Nucleated RBC % (auto) Neutrophils % (Manual) Band Neutrophils % Lymphocytes % (Manual) Monocytes % (Manual) Metamyelocytes % Abs Neuts (Manual) Lymphocytes # (Manual) Monocytes # (Manual) Metamyelocytes # Platelet Estimate Plt Morphology Comment RBC Morphology PT INR APTT VBG pH VBG pCO2 VBG pO2 VBG HCO3 VBG O2 Saturation VBG Base Excess Sodium Potassium Chloride Carbon Dioxide Anion Gap BUN Creatinine Estim Creat Clear Calc Estimated GFR POC Glucose Random Glucose Lactic Acid Lactic Acid Fup @ 2Hr Calcium Magnesium Total Bilirubin Direct Bilirubin AST ALT Alkaline Phosphatase Troponin I High Sens B-Natriuretic Peptide Total Protein Albumin Procalcitonin Urine Color YELLOW Urine Appearance CLEAR Urine pH 5.5 Ur Specific [place] >= 1.030 H Urine Protein 2+ H Urine Glucose (UA) 500 H Urine Ketones 15 Urine Blood 3+ H Urine Nitrite NEG Ur Leukocyte Esterase NEG Urine RBC 1-4 Urine WBC 1-4 Ur Squamous Epith Cells TRACE Amorphous Sediment 1+ Urine Bacteria TRACE Urine Osmolality 366 L Ur Random Sodium < 20.0 Acetone, Qual Coronavirus (PCR) Influenza Type A (PCR) Influenza Type B (PCR) RSV RNA Qual (PCR) 0103/09/20 03/09/20 20:02 20:02 20:02 WBC RBC Hgb Hct MCV MCH MCHC RDW Plt Count MPV Immature Gran % (Auto) Neut % (Auto) Lymph % (Auto) [place] % (Auto) Eos % (Auto) Baso % (Auto) Lymph # (Auto) [place] # (Auto) Eos # (Auto) Baso # (Auto) Abs Immat Gran (auto) Absolute Neuts (auto) Absolute Nucleated RBC Nucleated RBC % (auto) Neutrophils % (Manual) Band Neutrophils % Lymphocytes % (Manual) Monocytes % (Manual) Metamyelocytes % Abs Neuts (Manual) Lymphocytes # (Manual) Monocytes # (Manual) Metamyelocytes # Platelet Estimate Plt Morphology Comment RBC Morphology PT INR APTT VBG pH VBG pCO2 VBG pO2 VBG HCO3 VBG O2 Saturation VBG Base Excess Sodium 118 L* Potassium 3.9 Chloride 83 L Carbon Dioxide 15 L Anion Gap 24 H BUN 63 H Creatinine 2.58 H Estim Creat Clear Calc 53.8 Estimated GFR 26 POC Glucose Random Glucose 413 H* Lactic Acid Lactic Acid Fup @ 2Hr 1.5 Calcium 6.6 L D Magnesium Total Bilirubin Direct Bilirubin AST ALT Alkaline Phosphatase Troponin I High Sens 124.3 H B-Natriuretic Peptide Total Protein Albumin Procalcitonin Urine Color Urine Appearance Urine pH Ur Specific [place] Urine Protein Urine Glucose (UA) Urine Ketones Urine Blood Urine Nitrite Ur Leukocyte Esterase Urine RBC Urine WBC Ur Squamous Epith Cells Amorphous Sediment Urine Bacteria Urine Osmolality Ur Random Sodium Acetone, Qual Coronavirus (PCR) Influenza Type A (PCR) Influenza Type B (PCR) RSV RNA Qual (PCR) 03/09/20 03/09/20 03/09/20 22:52 23:51 23:51 WBC RBC Hgb Hct MCV MCH MCHC RDW Plt Count MPV Immature Gran % (Auto) Neut % (Auto) Lymph % (Auto) [place] % (Auto) Eos % (Auto) Baso % (Auto) Lymph # (Auto) [place] # (Auto) Eos # (Auto) Baso # (Auto) Abs Immat Gran (auto) Absolute Neuts (auto) Absolute Nucleated RBC Nucleated RBC % (auto) Neutrophils % (Manual) Band Neutrophils % Lymphocytes % (Manual) Monocytes % (Manual) Metamyelocytes % Abs Neuts (Manual) Lymphocytes # (Manual) Monocytes # (Manual) Metamyelocytes # Platelet Estimate Plt Morphology Comment RBC Morphology PT INR APTT VBG pH VBG pCO2 VBG pO2 VBG HCO3 VBG O2 Saturation VBG Base Excess Sodium 119 L* Potassium 3.7 Chloride 85 L Carbon Dioxide 19 L Anion Gap 19 BUN 63 H Creatinine 2.63 H Estim Creat Clear Calc 52.7 Estimated GFR 26 POC Glucose 369 H* Random Glucose 374 H* Lactic Acid Lactic Acid Fup @ 2Hr Calcium 6.5 L Magnesium Total Bilirubin Direct Bilirubin AST ALT Alkaline Phosphatase Troponin I High Sens B-Natriuretic Peptide Total Protein Albumin Procalcitonin 20.85 Urine Color Urine Appearance Urine pH Ur Specific [place] Urine Protein Urine Glucose (UA) Urine Ketones Urine Blood Urine Nitrite Ur Leukocyte Esterase Urine RBC Urine WBC Ur Squamous Epith Cells Amorphous Sediment Urine Bacteria Urine Osmolality Ur Random Sodium Acetone, Qual Coronavirus (PCR) Influenza Type A (PCR) Influenza Type B (PCR) RSV RNA Qual (PCR) Discharge Plan Discharge Anticipated Discharge Date/Time: 03/10/20 01:26 Patient Disposition: Xfer [facility] Hospital Referrals: Physician,Unknown [Primary Care Provider] - Discharge Medications: No Action metformin 500 mg tablet 2 tab PO BID RF: 0 atorvastatin 80 mg tablet 1 tab PO BEDTIME RF: 0 amlodipine 10 mg tablet 1 tab PO DAILY RF: 0 losartan 100 mg tablet 1 tab PO DAILY RF: 0 Januvia 100 mg tablet 1 tab PO DAILY RF: 0 Discharge Orders: Discharge Order (Routine); Ordered 03/10/20 Ordered By: Fran Kaur I Diet: diabetic diet Activity on Discharge: As tolerated Visit Report Forms: Patient Portal Discharge page Care Plan Goals: Transfer to [facility] for further care Health Concerns: Sepsis, Plan of Treatment: Transfer to [facility] for further care
[2020-03-10 01:47] LABS: Glucose, Whole Blood 345 mg/dL (60-115)
[2020-03-10 01:49] VITALS: BP 120/81; PULSE 105; RESP 22; TEMP 37.8; O2SAT 100
[2020-03-10] MEDS: 0.9 % Sodium Chloride 1,000 ML 150 ML IVCONT (01:59)
[2020-03-10] MEDS: Acetaminophen 325 MG TABLET 650 MG PO (02:03)
--- NOTE | 2020-03-10 02:04 | PC.NURSE ---
PT HAS SWELLING TO LEFT LOWER LEG, CT RESULTS SHOW MULTIPLE AREAS OF INFECTION AND GAS- PER HOSPITALIST. PT AWARE OF PLAN TO TRANSFER TO [facility] FOR [facility]GICAL CONSULT. PT SLEEPING, RR 30'S SINCE ARRIVAL BUT PT NOT COMPLAINING OF DYSPNEA.
[2020-03-10] MEDS: Piperacillin Sodium/Tazobactam 2.25 GM in 0.9 % Sodium Chloride 50 ML IV (02:32)
--- NOTE | 2020-03-10 02:51 | PC.NURSE ---
Addendum entered by Elsie Coley 03/10/20 02:57: great left toe amputated Original Note: pt reports that he had the great toe left foot anoutated this past july. pt has been experiencing weakness and fever for the past week. redness and gross edema to lower left extremity x 3 day.
--- NOTE | 2020-03-10 02:57 | PC.NURSE ---
report given to rn at [facility] room 6 phone [phone].
[2020-03-10] MEDS: Calcium Gluconate/NaCl,Iso-Osm 2 GM/100 ML PLAST..BAG IV (03:27)
== END 2020-03-10 04:01 | disposition short-term general hospital (02) ==
LOC: HO.ED 17:57 → HO.EDOVER 03-10 01:26
PROVIDERS: Internal Medicine; Physician Assistant; Emergency Provider Emergency Medicine Emergency Medical Services
DX: E87.1 Hypo-osmolality and hyponatremia (principal); L03.116 Cellulitis of left lower limb; R60.0 Localized edema; N17.9 Acute kidney failure, unspecified; R65.20 Severe sepsis without septic shock; A41.9 Sepsis, unspecified organism; R53.1 Weakness; Z79.899 Other long term (current) drug therapy; Z20.822 Contact with and (suspected) exposure to COVID-19
CPT/HCPCS: 0241U; 36415; 71045; 73610; 73630; 73700; 78580; 80048; 80076; 81001; 82009; 82803; 82947; 83605; 83735; 83880; 83935; 84145; 84300; 84484; 85007; 85025; 85027; 85610; 85730; 87040; 87077; 87147; 87186; 87205; 93005; 93971; 96361; 96365; 96366; 96367; 99285; 99291; A9540; J0610; J2543; J3370

== ENCOUNTER 2023-07-23 10:39 | Outpatient (REF) | payer OTHER, SELFPAY | END 2023-07-23 10:40 | disposition home or self-care (01) | LOC: HO.HOSX 10:39 | PROVIDERS: PCP Internal Medicine; Visit Provider Neurological Surgery | DX: Z13.89 Encounter for screening for other disorder (principal) ==

== ENCOUNTER 2023-07-23 10:39 | Outpatient (AMB) | payer OTHER, SELFPAY ==
--- NOTE | 2023-07-23 11:47 | A.SPINEOV_ITS ---
Intake Visit Reasons: low back pain Intake Note: Mr. Kidd is here today c/o low back pain that radiates to both thigh/leg area. Manager Configuration Required: No Allergies No Known Allergies [No Known Allergies*] Allergy (Verified 07/23/23 11:47) Assessment & Plan Assessment & Plan (1) Back pain: Code(s): M54.9 - Dorsalgia, unspecified Category: Medical Plan Mr Kidd is a gentleman who referred himself to our office today. He is a fragile diabetic, who had a chronic lower extremity infection in his left foot back in 2020 that ultimately ended up giving him an osteomyelitis. He believes the infection was at L4-5. He underwent decompression of the infected space twice over the course of about 3 or 4 months. A subsequent 3rd return of the infection was treated with antibiotics. He is on suppressive doxycycline for the rest of his life. He had his surgeries at [facility] by Dr. Arroyo and Dr Canales. He has not been back to see him for this particular issue, but he reports that he has had a progressively worsening back pain over the last 3 years when he stands and walks it radiates down the front of his thighs. He saw an advertisement force online and came in today for an evaluation to see if there is anything we can do. He does not report any weakness of his legs, tingling or numbness, this is strictly a pain syndrome. He used to take things like Motrin or Tylenol but found that they generally did not work. He had been through physical therapy as well. PMH: He is a fragile diabetic, he has a blood sensor implanted in his arm, showing his A1c over the last 3 months of 7.6. He is history of high blood pressure, chronic kidney disease. He has not sure what stage he is in. Remote history of a DVT many years ago. 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 Outside of these things, he reports no significant medical history or major surgeries. Social hx: He does not smoke, drink use any recreational drugs Medications: Actos, metoprolol, losartan, gabapentin, insulin, nephro gene, doxycycline Allergies: None Physical exam: Morbidly obese male stands 6 ft 4, he did not tell me his weight but I suspect around 400 lb. He has an left BKA with a prosthetic. His strength in the lower extremities is normal, right leg reflexes are absent. Imaging review: He did not have a working disc with him here today, so there was nothing I can review Impression: 52-year-old male with a recurrent osteomyelitis on lifetime suppressive antibiotics. His last major infection was in 2020 when he had 2 decompressions at what he thinks so the L4-5 area and then subsequently had a 3rd infection which was just treated with antibiotics. He has had chronic back pain since this time going down the front of his thighs when he stands and walks. It is interfering with his quality of life. His exam is intact on the right leg, left leg has BKA. I would like to get standing x-rays. I will review his imaging with Dr. Rodriguez once he can bring me a disc that is working. I will get back to the patient once I have a chance to review everything. Thank you for allowing us to care for your patient. The total time spent with this visit with this patient was 45 minutes reviewing history, physical exam, ordering x-ray imaging review, and implementation of treatment plan or further diagnostic testing Dino Rodriguez MD,PhD [facility] Orders: Orders XR lumbar spine 4V min Today M54.9 - Dorsalgia, unspecified Coding Level of Care Code New Pt Level 4 (21849) Diagnoses Back pain M54.9
== END 2023-07-23 12:44 | disposition home or self-care (01) ==
PROVIDERS: PCP Internal Medicine; Visit Provider Neurological Surgery
DX: M54.9 Dorsalgia, unspecified (principal)
CPT/HCPCS: 99204